=== PATIENT | female | born 1960 | race Caucasian/White ===

== ENCOUNTER → 2018-12-03 | Outpatient (CLI) | payer BC, SELFPAY ==
[2018-10-28 11:02] VITALS: BMI 23.2
[2018-12-08 12:59] LABS: HPV APTIMA, High Risk Negative (Negative)
== END | disposition home or self-care (01) ==
LOC: LABSPEC 14:14
PROVIDERS: Family Provider Family Medicine; PCP Family Medicine; Visit Provider Obstetrics & Gynecology
DX: Z12.4 Encounter for screening for malignant neoplasm of cervix (principal)
CPT/HCPCS: 87624; 88175; G0145

== ENCOUNTER → 2019-10-19 10:55 | Outpatient (CLI) | payer BC, SELFPAY ==
[2019-04-14 12:58] VITALS: BMI 23.2
--- NOTE | 2019-10-19 11:13 | BD_ITS ---
STUDY: DUAL ENERGY X-RAY ABSORPTIOMETRY / DXA REASON FOR EXAM: Female, 58 years old. Age of vivek 48. Pat is 122# and 63.25. Hx of breast CA and takes tamoxifen. Takes calcium and a multi-vit irregularly. Exercises moderatly. Hx of a possible hand fx per pat. TECHNIQUE: Bone Mineral Density (BMD) measurements of lumbar spine and bilateral hips were obtained. COMPARISON: Comparison is made with prior examination dated 03/27/2016. FINDINGS: Lumbar Spine (L1-L4): g/cm2 (1.098) / T-score (-0.7) / Z-score (0.6) Findings are suggestive of normal bone density with a low fracture risk. Left Femur Total: g/cm2 (0.797) / T-score (-1.7) / Z-score (-0.7) Left Femoral Neck: g/cm2 (0.731) / T-score (-2.2) / Z-score (-0.9) Right Femur Total: g/cm2 (0.754) / T-score (-2.0) / Z-score (-1.1) Right Femoral Neck: g/cm2 (0.692) / T-score (-2.5) / Z-score (-1.2) The T-Scores on the most recent prior examination were: Lumbar Spine (L1-L4): There has been improvement of bone density since the previous examination. Left Femur Total: which represents an improvement of 2.2%. Right Femur Total: which represents an improvement of 8.3%. BD/Dexa Bone Density Study IMPRESSION: The patient is considered osteoporotic as outlined below according to World Anthony Organization (WHO) criteria with a high fracture risk. There has been improvement of bone density since the previous examination. Reference Information: The T-score is the number of standard deviations above or below the standard which is normal for young adults at their peak bone mineral density. The World Health Organization (WHO) interprets the T-scores as follows: Above -1 Normal bone density Between -1 and -2.5 Osteopenia Equal to / or below -2.5 Osteoporosis As a practical clinical guideline, osteopenia may be graded as follows: Mild -1 through -1.5 Moderate -1.6 through -2.0 Severe -2.1 through -2.4 The Z-score is the number of standard deviations above or below age-matched controls. A Z-score of less than -1.5 would be considered abnormal. References: 1. NIH Osteoporosis and Related Bone Diseases http://www.osteo.org 2. International Society for Clinical Densitometry http://www.iscd.org 3. National Osteoporosis Foundation http://www.nof.org Electronically Signed: Gustavo Winters, at 15:58 EDT , Service support ,
== END ==
PROVIDERS: PCP Family Medicine; Referring Provider Internal Medicine Medical Oncology; Visit Provider Internal Medicine Medical Oncology
DX: Z13.820 Encounter for screening for osteoporosis (principal)
CPT/HCPCS: 77080

== ENCOUNTER → 2020-07-13 15:50 | Outpatient (CLI) | payer BC, SELFPAY ==
[2019-04-14 12:58] VITALS: BMI 23.2
--- NOTE | 2020-07-13 15:14 | EMB_PTH ---
PATIENT: MICHAEL CASTREJON LOC: [facility] U#:[id number] AGE/SX: 64/F ROOM: RE07/13/[address]: Dr. Clotilde Jj MD : 1960 BED: DIS: SPEC #: [id number] RECD: 07/13/20 16:06 STATUS: SHANKAR HUY #: [id number] HAYDEN: 07/13/20 15:[address]: Clotilde Up DEPT: SURGICAL PATHOLOGY RECD BY: Marce Chandler ENTERED: 07/16/20 08:49 SP TYPE: ENDOM BX/C ADAIR DR: Dr. Td Pope MD Tissues: Endometrium, NOS Procedures: Surgery Specimen Level IV HEADER OPERATION: Endometrial biopsy PRE-OP DIAGNOSIS: Postmenopausal bleeding TISSUE SUBMITTED: Endometrial biopsy MICROSCOPIC DIAGNOSIS Endometrium, biopsy: Strips of benign superficial glandular tissue. AM:warren 07/17/2020 MICROSCOPIC DESCRIPTION Slides are reviewed. GROSS DESCRIPTION Received in fixative is one container labeled with the patient's name and designated EMB. The specimen consists of multiple irregular fragments of starkey mucoid tissue mixed with hemorrhagic soft tissue that in aggregate measure 2.5 x 2.5 x 0.2 cm. The specimen is totally submitted in one cassette. / SJ:warren 07/16/20 TC:5 CPT: 00759
== END ==
PROVIDERS: PCP Family Medicine; Visit Provider Obstetrics & Gynecology
DX: N95.0 Postmenopausal bleeding (principal)
CPT/HCPCS: 88305

== ENCOUNTER 2020-07-27 05:57 | Day surgery (SDC) | payer BC, SELFPAY ==
[2019-04-14 12:58] VITALS: BMI 23.2
[2020-07-26 11:09] LABS: Hematocrit 40.9 % (37-47); Hemoglobin 13.2 g/dL (12.0-15.0); Mean Corp Hgb Conc 32.3 g/dL (32-36); Mean Corpuscular Hgb 31.7 pg (27.0-32.0); Mean Corpuscular Volume 98.1 fL (81-99); Mean Platelet Vol. 10.5 fl (6.2-12.0); Platelet Count 198 K/mm3 (150-450); RBC Distribution Width CV 13.1 % (11.6-14.6); RBC Distribution Width SD 46.9 fl (35.1-43.9); Red Blood Count 4.17 M/mm3 (4.2-5.4); White Blood Count 3.6 K/mm3 (4.4-11.0)
[2020-07-26 11:15] LABS: Prothrombin Time (Protime)PT. 12.8 SECONDS (11.7-14.9)
[2020-07-26 11:16] LABS: Partial Thromboplast Time 25.2 Seconds (24.1-36.2)
[2020-07-27] VITALS (7 sets, daily range): BP systolic 99–114; BP diastolic 51–81; PULSE 55–73; RESP 16; TEMP 36.6–37.1; O2SAT 99–100; BMI 22.1
--- NOTE | 2020-07-27 | EMB_PTH ---
PATIENT: MICHAEL CASTREJON LOC: [facility] U#:[id number] AGE/SX: 59/F ROOM: RE07/27/[address]: Dr. Clotilde Jj MD : 1960 BED: DIS: 07/27/2020 SPEC #: [id number] RECD: 07/27/20 12:43 STATUS: SHANKAR RECarolina #: [id number] HAYDEN: 07/27/20 00:[address]: Clotilde Up DEPT: SURGICAL PATHOLOGY RECD BY: Lars Arevalo ENTERED: 07/27/20 14:00 SP TYPE: ENDOM BX/C WILLIHR DR: Dr. Td Pope MD Tissues: Endometrium, NOS Procedures: Surgery Specimen Level IV HEADER OPERATION: Hysteroscopy, dilation and curettage PRE-OP DIAGNOSIS: Postmenopausal bleeding; endometrial thickening on ultrasound TISSUE SUBMITTED: Endometrial curettings MICROSCOPIC DIAGNOSIS Endometrial curettings: Polypoid fragments of tissue with focal simple cystic endometrial hyperplasia without atypia. See comment. VELVET:warren 07/31/2020 COMMENT Findings may represent fragments of benign endometrial polyp. Clinical correlation and appropriate follow up are necessary. Please make reference to previous specimen ([id number]) endometrium, biopsy with diagnosis of ?strips of benign superficial glandular tissue.? MICROSCOPIC DESCRIPTION Slides are reviewed. GROSS DESCRIPTION Received in fixative is one container labeled with the patient's name and designated endometrial curettings. The specimen consists of multiple polypoid fragments of starkey-pink soft tissue that in aggregate measure 5 x 3 x 0.3 cm. The specimen is totally submitted in two cassettes. / VELVET:warren 07/27/20 :5 [facility]: [id number]
--- NOTE | 2020-07-27 | FLU_PTH ---
PATIENT: MICHAEL CASTREJON [place] [facility] [place][id number] AGE/SX: 59/F ROOM: RE07/27/[address]: Dr. Clotilde Jj MD : 1960 BED: DIS: 07/27/2020 SPEC #: [id number] RECD: 07/27/20 11:08 STATUS: SHANKAR REQ #: [id number] HAYDEN: 07/27/20 00:[address]: Clotilde Up DEPT: CYTOLOGY RECD BY: Lars Arevalo ENTERED: 07/27/20 11:10 SP TYPE: Fluid OTHR DR: Dr. Td Pope MD Tissues: Endometrial cavity Procedures: Special Stain Group II Surgery Specimen Level IV Cytospin Fluid HEADER OPERATION: Not noted PRE-OP DIAGNOSIS: Postmenopausal bleeding; endometrial thickening on ultrasound TISSUE SUBMITTED: Endometrial washings DIAGNOSIS CYTOLOGY Endometrial washings (cytospin and cell block): Scant strips of benign superficial endometrium with mild atypia. See comment. AM:warren 07/31/2020 COMMENT Immunohistochemistry ([id number]) supports the above diagnosis. CYTOLOGY STUDY Slides are reviewed. CYTOLOGY GROSS Received is 4 ml of red cloudy fluid labeled with the patient's name and and designated per the requisition as endometrium. Submitted for cytology preparation including cell block. / warren 07/27/2020 TC:? CPT: 26781, 96486
--- NOTE | 2020-07-27 | IMM_PTH ---
PATIENT: MICHAEL CASTREJON LOC: [facility] [place] U#:[id number] AGE/SX: 59/F ROOM: RE07/27/[address]: Dr. Clotilde Jj MD : 1960 BED: DIS: 07/27/2020 SPEC #: [id number] RECD: 07/31/20 11:29 STATUS: SOUPapa REQ #: [id number] HAYDEN: 07/27/20 00:[address]: Clotilde Up DEPT: IMMUNOHISTOCHEMISTRY RECD BY: Angeal Seaman ENTERED: 07/31/20 11:30 SP TYPE: IMMUNO OTHR DR: Dr. Td Pope MD Tissues: Endometrium, NOS Procedures: CEA (add) CK20 (add) CK7 (add) P53 (add) VT (add) Vimentin (add) Pankeratin (add) ER (initial) PHYSICIAN & INSTITUTION [place] [id number] SPECIMEN INFORMATION: Tissue Source: Endometrial washings Clinical Info: Postmenopausal bleeding; endometrial thickening on ultrasound Specimen Number: [id number] CPT code: 38776, 10689 x7 METHODOLOGY: Deparaffinized sections of prefer/formalin-fixed tissue or PAP/DQ stained slides are incubated with monoclonal/polyclonal antibodies/oligonucleotide probes. Localization is made via biotin free immunoperoxidase method. Appropriate controls are performed and reacted as expected. Results on target cell population are indicated in the following table: RESULTS: ANTIBODY / CLONE RESULT ER (6F11) positive VT (1E2) positive AE1-3 (AE1/AE3/PCK26) positive CK7 (OV-TL12/30) positive CK20 (KS20.8) negative Vimentin (V9) positive CEA (11-7/TF-3HB-1) negative P53 (DO-7) negative These tests were developed and their performance characteristics determined by [facility]. They may not have been cleared or approved by the U.S. Food and Drug Administration. The FDA has determined that such clearance or approval is not necessary. The above immunohistochemical/dualISH markers are ordered and reviewed by the Pathologist. INTERPRETATION: Endometrial washings: Scant strips of benign superficial endometrium. AM:warren 08/01/2020
[2020-07-27] MEDS: Lactated Ringers 1,000 ML 100 ML IV (06:42)
--- NOTE | 2020-07-27 07:16 | HP.PCM.OB_ITS ---
History and Physical Date of Admission: 07/27/20 Surgical History and Physical Date: 07/27/2020 Name: MICHAEL DIAZ Age: 59 Date of : 1960 Michael Diaz, a 59 year old female 2 0 0 0 2, presents for D and C and hysteroscopy on June at 7 :30. -- Michael presents for hysteroscopy, dilation and curettage for postmenopausal bleeding. She had an office EMB on 07/13/20 with benign pathology, however, her endometrial stripe was 38mm and suspicious for underlying pathology. MEDICATIONS HISTORY: Patient is also takin. tamoxifen 20 mg tablet, 1 PO QD ALLERGIES: No Known Drug Allergies Infections - Chicken pox, Mumps and Measles Illnesses - breast cancer Accidents - None Hospitalizations - Childbirth and see surgery Review of Systems: GENERAL - Denies fever, or chills SKIN - Denies skin changes EYES - wears eye glasses EARS - Denies difficulty hearing NOSE - Denies nasal congestion or bleeding MOUTH - Denies sore throat or difficulty swallowing NECK - Denies pain or swelling RESPIRATORY - Denies shortness of breath or wheezing CARDIOVASCULAR - Denies palpitations or chest pain GASTROINTESTINAL - Denies nausea, vomiting, diarrhea, constipation GENITOURINARY - PMB MUSCULOSKELETAL - Denies joint or muscle pain NEUROLOGICAL - Denies localized numbness or weakness PSYCHIATRIC - Denies depression or anxiety ENDOCRINE - Denies heat or cold intolerance, weight loss or gain HEMATO-IMMUNOLOGIC - Denies excesive bleeding with cuts SOCIAL HISTORY: Alcohol Use - RARELY Smoking - denies smoking Diet - no special diet Lifestyle - Exercise - regular Seat Belt Use - always Employer - [employer] Job Description - CS Illicit Drug Use - denies use of street drugs Sexual Activity - single sexual partner Residence - lives with Hours Worked - FT Spouse-Sig Other Name - Federico Spouse-Sig 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 left mastectomy 08/2015 ; - 2. port insertion and removal ; - PHYSICAL EXAM BP- 120/74 Sitting, Right arm, regular cuff Weight- 125.93844 lbs Height- 62.5 inch BMI:22.55 CONSTITUTIONAL - NAD, well nourished, and well developed HEENT - normocephalic, atraumatic, sclerae anicteric LUNGS - normal respiratory rate and rhythm NEUROLOGICAL - normal gait, normal balance, normal motor PSYCHIATRIC - A and O to time, place, person, mood and affect External Genitial Vagina - non-tender without lesions Urethra/Urethral Meatus - non-tender Bladder - non-tender Vagina - vaginal pandey are pink and moist without loss of rugae and no evidence of atropy Cervix - without cervical motion tenderness and has normal size and features without evident lesions Uterus - enlarged uterus 8 wks, wt 125-150 g Adnexa - clear without massess or tenderness 07/27/20 wbc 3.6>Hgb 13.2/ Hct 40.9 < Plt 198 PELVIC US 07/13/20 UTERUS: 9.3 x 5.8 x 7.7 cm. ENDOMETRIAL ECHO: 3.8 cm and has a honeycomb appearance. There is a small amount of peripheral blood flow seen. RIGHT OVARY: Not seen and adnexa appears normal. LEFT OVARY: Not seen and adnexa appears normal. Assessment & Plan Assessment/Plan (1) Postmenopausal bleeding: (2) Endometrial thickening on ultrasound: PLAN: Proceed as planned. Patient and given opportunity to ask questions and questions answered to their satisfaction.
[2020-07-27] MEDS: Lubricating Jelly 60 GM Tube 30 GM TOPICAL (08:00)
[2020-07-27] MEDS: Lidocaine 1% (30 ml sdv) 30 ML Vial (08:00)
--- NOTE | 2020-07-27 08:26 | PCM.OPRPT ---
Problems Associated Problem List Diagnoses (1) Endometrial thickening on ultrasound: (2) Postmenopausal bleeding: Report of Operation Date of Procedure: 07/27/20 Pre-Operative Diagnosis: 1. Postmenopausal bleeding 2. Thickened endometrial stripe Post-Operative Diagnosis: 1. Postmenopausal bleeding 2. Thickened endometrial stripe Surgery/Procedure Performed:: Hysteroscopy Dilation and curettage Description of Surgical Findings:: Large polypoid endometrial lesion with areas of calcification and hypervascularity. Surgeon: Clotilde Up Type of Anesthesia: Local MAC Anesthesiologist: Christopher Marshall Specimen's removed: Endometrial curettings, endometrial fluid Estimated Blood Loss (mL): 20 Fluids Replaced: 800 mL Description of Procedure: Indications: 59-year-old postmenopausal female with a history of postmenopausal bleeding presents for scheduled hysteroscopy, dilation and curettage. She was seen approximately 2 weeks ago in the office with complaint of postmenopausal bleeding and found to have a thickened endometrial stripe measuring 38 mm with fluid components. An office endometrial biopsy was performed with benign pathology. Given my suspicion for neoplasia I advised her to proceed with hysteroscopy, dilation and curettage. Procedure risks, benefits, indications and alternatives were reviewed. Patient desired to proceed. Indications: Induced under MAC. She was repositioned into dorsal lithotomy and examination under anesthesia was performed. The perineum was prepped and straight catheterization of the bladder was performed. She was draped in sterile fashion. Patient was placed into high lithotomy and timeout performed. A bivalve speculum was placed vaginally cervix grasped the anterior cervical lip using a single-tooth tenaculum. Paracervical block was placed for total of 20 cc of 1% lidocaine without epinephrine. The cervix was subsequently dilated and hysteroscopy performed demonstrating a polypoid lesion extending from the right fundal posterior uterus and occluding the right tubal ostia. The hysteroscope was removed and a polyp forceps was used to retrieve biopsy of the polypoid lesion however it was unable to be removed in its entirety due to the size of its base. Sharp curettage was performed. Hysteroscopy was again performed with the uterus intact. The procedure was completed. The hysteroscope was removed, the tenaculum removed from the cervix. Tenaculum sites were hemostatic. Speculum was removed from the vagina. The patient was awakened and transported to the recovery room without complication. Sponge counts were correct x2. Complications None Admit VTE Documentation VTE Present on Admission: No VTE Mechan Device Prophylaxis: SCD's VTE Pharm Prophylaxis ordered?: No
--- NOTE | 2020-07-27 08:36 | PCM.DC ---
Discharge Instructions Diet Discharge Diet: No restrictions Activity Discharge Activity: Return to Normal Activity and May Shower May resume sexual activity in: - (2 to 4 weeks) Dressing / Incision Call your doctor if you observe: Fever of 101 or Higher, Using more than one pad per hour, Shortness of breath, Chest pain, Calf discomfort and Uncontrolled pain Follow Up Care Please Follow Up With: Clotilde Jj MD Test Results: Test results from this visit will be discussed in further detail at your follow-up appointment or by phone, if applicable. Discharge Plan Admission Primary Reason for Your Visit: Hysteroscopy, Dilation and Curettage Attending Provider: Clotilde Up Primary Care Provider: Td Pope Instructions Patient Instructions: Dilation and Curettage, Hysteroscopy Discharge Orders/Prescriptions Prescriptions: New ibuprofen 600 mg tablet 600 mg PO Q8H PRN (Reason: pain) Qty: 30 RF: 0 oxycodone 5 mg capsule 5 mg PO Q6H PRN (Reason: pain (scale score 7-10)) 3 Days Qty: 4 RF: 0 No Action tamoxifen 20 MG tablet 20 mg PO DAILY 90 Days Qty: 90 RF: 3 multivitamin Tablet 1 tab PO DAILY RF: 0 Referrals / Follow Up: Td Pope MD [Primary Care Provider] - Disposition Discharge Orders: Discharge Patient (Routine); Ordered 07/27/20 Ordered By: Dr. Clotilde Jj
[2020-07-27 08:40] LABS: Cytology, Body Fluid / CSF SEE PATHOLOGY REPORT
== END 2020-07-27 10:05 ==
LOC: SDC 05:58 → AC 05:58
PROVIDERS: PCP Family Medicine; Referring Provider Obstetrics & Gynecology; Visit Provider Obstetrics & Gynecology
PROC: 0UDB8ZZ Extraction of Endometrium, Via Natural or Artificial Opening Endoscopic (ICD-10-PCS; CPT 58558; principal; 2020-07-27 07:20)
DX: N85.01 Benign endometrial hyperplasia (principal); N95.0 Postmenopausal bleeding; Z85.3 Personal history of malignant neoplasm of breast; Z92.21 Personal history of antineoplastic chemotherapy; Z92.3 Personal history of irradiation
CPT/HCPCS: 00952; 58558; 36415; 85027; 85610; 85730; 86850; 86900; 86901; 87426; 88108; 88305; 88313; 88341; 88342; C9803; J7120; J2405

== ENCOUNTER → 2020-08-14 13:54 | Outpatient (CLI) | payer BC, SELFPAY ==
[2020-07-27 06:27] VITALS: BMI 22.1
== END ==
PROVIDERS: PCP Family Medicine; Visit Provider Obstetrics & Gynecology
DX: R35.0 Frequency of micturition (principal); N77.1 Vaginitis, vulvitis and vulvovaginitis in diseases classified elsewhere
CPT/HCPCS: 87086; 87088; 87186

== ENCOUNTER 2020-09-13 05:47 | Day surgery (SDC) | payer BC, SELFPAY ==
[2020-07-27 06:27] VITALS: BMI 22.1
--- NOTE | 2020-09-07 13:08 | RAD_ITS ---
STUDY: X-RAY CHEST REASON FOR EXAM: Female, 59 years old. Preop TECHNIQUE: PA and lateral views of the chest. COMPARISON: Comparison is made with prior study dated 11/22/2015. FINDINGS: The previously seen right sided ebony catheter has been removed. Surgical clips are seen in the left axillary region. The patient is status post left mastectomy. There is hyperinflation of the lungs consistent with chronic obstructive lung disease (COPD). Increased linear densities in the lateral aspect of the left upper lobe. This is suggestive of a possible scarring. There is no demonstrated pleural abnormality. Normal size heart. Normal mediastinum and ehsan. Normal visualized pulmonary arteries. Normal visualized aortic arch and descending thoracic aorta. Normal visualized thoracic spine. Normal visualized ribs, clavicles, and shoulders. There is no demonstrated abnormality of the visualized soft tissue structures of the upper abdomen. RAD/Chest PA and Lateral IMPRESSION: Hyperinflation. Status post left mastectomy and left axillary node dissection. Findings suggestive of scarring in the left upper lobe. Electronically Signed: Gustavo Winters MD at 14:53 EDT , Service support ,
--- NOTE | 2020-09-12 14:05 | EKG12_ITS ---
Test Reason : PREOP Blood Pressure : / mmHG Vent. Rate : 072 BPM Atrial Rate : 072 BPM P-R Int : 000 ms QRS Dur : 086 ms QT Int : 418 ms P-R-T Axes : 000 046 049 degrees QTc Int : 457 ms Ectopic atrial rhythm with atrial bigeminy Confirmed by PRECIOUS GALLOWAY, YOSELIN ([id number]), image editor ELISA GALVIN ([id number]) on 09/13/2020 9:06:24 AM Referred By: Clotilde Jj Confirmed By:YOSELIN LANG MD
[2020-09-12 16:18] LABS: Hematocrit 36.5 % (37-47); Hemoglobin 11.7 g/dL (12.0-15.0); Mean Corp Hgb Conc 32.1 g/dL (32-36); Mean Corpuscular Hgb 31.5 pg (27.0-32.0); Mean Corpuscular Volume 98.1 fL (81-99); Mean Platelet Vol. 10.6 fl (6.2-12.0); Platelet Count 199 K/mm3 (150-450); RBC Distribution Width SD 46.9 fl (35.1-43.9); Red Blood Count 3.72 M/mm3 (4.2-5.4); White Blood Count 3.7 K/mm3 (4.4-11.0)
[2020-09-12 16:45] LABS: International Normalized Ratio 1.2; Prothrombin Time (Protime)PT. 14.1 SECONDS (11.7-14.9)
[2020-09-12 16:46] LABS: Partial Thromboplast Time 27.5 Seconds (24.1-36.2)
[2020-09-12 16:57] LABS: AST(SGOT) 22 U/L (15-37); Alanine Aminotransfer ALT/SGPT 25 U/L (13-56); Albumin, Serum 3.1 g/dL (3.2-5.0); Alkaline Phosphatase 55 U/L (45-117); Anion Gap 4 (5-15); BUN 12 mg/dL (7-18); BUN/Creat Ratio 16.6 RATIO (10-20); Calcium,Total 8.1 mg/dL (8.5-10.1); Chloride 108 mmol/L (98-107); Creatinine, Serum 0.72 mg/dL (0.55-1.02); EST Glomerular Filtration Rate 87 mL/min (>60); Est Glom Filt Rate - Afr Amer 105 mL/min (>60); Estimated Creatinine Clearance 67.88 ml/min; Glucose 82 mg/dL (74-106); Potassium 3.9 mmol/L (3.5-5.1); Protein, Total 6.1 g/dL (6.4-8.2); Sodium Level 142 mmol/L (136-145)
[2020-09-12 17:24] LABS: Hemoglobin A1c 5.2 % (3.8-5.6)
[2020-09-13] VITALS (13 sets, daily range): BP systolic 89–120; BP diastolic 50–78; PULSE 59–77; RESP 16; TEMP 36.1–37.3; O2SAT 96–100; BMI 22.1
--- NOTE | 2020-09-13 06:00 | EKG12_ITS ---
Test Reason : PREOP Blood Pressure : / mmHG Vent. Rate : 071 BPM Atrial Rate : 071 BPM P-R Int : 156 ms QRS Dur : 086 ms QT Int : 418 ms P-R-T Axes : -04 067 071 degrees QTc Int : 454 ms Normal sinus rhythm Normal ECG When compared with ECG of 12-SEP-2020 14:13, MANUAL COMPARISON REQUIRED, DATA IS UNCONFIRMED Confirmed by RADHA GALLOWAY, JENNIFER ([id number]), videotape editor ELISA GALVIN ([id number]) on 09/17/2020 11:55:27 AM Referred By: Clotilde Jj Confirmed By:JENNIFER GARCIA MD
[2020-09-13] MEDS: Gabapentin 600 MG Tablet PO (06:51)
[2020-09-13] MEDS: Acetaminophen 500 MG Tablet 1000 MG PO ×3 (06:51→23:19)
--- NOTE | 2020-09-13 06:51 | PCM.HP.STD ---
HPI - General HPI Narrative MICHAEL CASTREJON, is a 59 F postmenopausal woman who presents for scheduled LAVH, BSO. She has a history of breast cancer, is on Tamoxifen, and had postmenopausal bleeding with endometrial thickening. Biopsy confirmed endometrial hyperplasia. COUNT INCLUDES THE [facility] Medical History (Updated 09/13/20 @ 06:[address] Clotilde Jj MD) Alcohol use Back pain Cancer colonoscopy Injury of head and neck Leg cramps Low iron med port removal Non-smoker Shortness of breath on exertion Wears glasses Home Medications tamoxifen 20 mg PO DAILY 90 Days #90 tab 10/20/17 [Rx Last Taken Unknown] multivitamin 1 tab PO DAILY 07/24/20 [History Last Taken Unknown] Allergy/AdvReac Type Severity Reaction Status Date / Time No Known Allergies Allergy Verified 09/13/20 06:30 Family History Mother Breast cancer Diabetes Surgical History History of hysteroscopy History of mastectomy Social History Smoking Status: Never smoker Vital Signs Vital Signs Vital Signs: 09/13/20 06:32 Temperature 98.1 F Temperature Source Temporal Pulse Rate 74 Respiratory Rate 16 Respiratory Pattern Normal Blood Pressure 89/59 L Blood Pressure Mean 69 Blood Pressure Source Monitor Blood Pressure Position Semi-Fowlers Blood Pressure Location Right Arm Pulse Ox 100 Oxygen Delivery Method Room Air Weight Weight: 56.8 kg Body Mass Index (BMI) 22.1 Physical Exam Const alert, oriented x3 and no apparent distress HEENT normocephalic Resp normal respiratory effort, normal air movement and clear to auscultation bilaterally Cardio regular rate and regular rhythm GI normal to inspection, nondistended, normoactive bowel sounds, soft to palpation, non-tender and non-distended Extremity no calf tenderness and no pedal edema Results Lab / Micro Data Result Diagrams: 09/12/20 14:40 09/12/20 14:40 Labs: Laboratory Results - last 24 hr 09/12/20 14:40: WBC 3.7 L, RBC 3.72 L, Hgb 11.7 L, Hct 36.5 L, MCV 98.1, MCH 31.5, MCHC 32.1, RDW Std Deviation 46.9 H, RDW Coeff of Xavier 13.0, Plt Count 199, MPV 10.6 09/12/20 14:40: Sodium 142, Potassium 3.9, Chloride 108 H, Carbon Dioxide 30.0, Anion Gap 4 L, BUN 12, Creatinine 0.72, Estim Creat Clear Calc 67.88, Est GFR (MDRD) Af Amer 105, Est GFR (MDRD) Non-Af 87, BUN/Creatinine Ratio 16.6, Glucose 82, Calcium 8.1 L, Total Bilirubin 0.20, AST 22, ALT 25, Alkaline Phosphatase 55, Total Protein 6.1 L, Albumin 3.1 L, Globulin 3.0, Albumin/Globulin Ratio 1.0 09/12/20 14:40: PT 14.1, INR 1.2, APTT 27.5 09/12/20 14:40: Hemoglobin A1c 5.2 09/12/20 14:40: Blood Type O POSITIVE, Antibody Screen NEGATIVE Micro: Microbiology 09/12/20 14:39 Interface Orders SARS-CoV-2 Antigen (Rapid) - Final Assessment & Plan Assessment/Plan (1) Endometrial thickening on ultrasound: (2) Postmenopausal bleeding: (3) Endometrial hyperplasia: PLAN: Proceed with LAVH as planned Given Tamoxifen will plan for 2 weeks postoperative anticoagulation per Dr. Thakkar
[2020-09-13] MEDS: dexAMETHasone 10 MG/ML Vial 8 MG IV (06:52)
[2020-09-13] MEDS: Heparin Injection (Vial) 5,000 UNIT/ML VIAL 5000 UNIT SC (06:52)
[2020-09-13] MEDS: Lactated Ringers 1,000 ML 40 ML IV ×4 (07:12→17:18)
[2020-09-13 07:15] LABS: Bedside Glucose 59 mg/dL (70-110)
--- NOTE | 2020-09-13 07:30 | HYST_PTH ---
PATIENT: MICHAEL CASTREJON [place] [facility] [place][id number] AGE/SX: 59/F ROOM: RE09/13/[address]: Dr. Clotilde Jj MD : 1960 BED: DIS: 09/14/2020 SPEC #: [id number] RECD: 09/13/20 11:28 STATUS: SHANKAR SON #: [id number] HAYDEN: 09/13/20 07:[address]: Clotilde Up DEPT: SURGICAL PATHOLOGY RECD BY: Lars Arevalo ENTERED: 09/13/20 11:51 SP TYPE: HYSTERECT OTHR DR: MD Dr. Chace Louis MD Tissues: Uterus, NOS Procedures: Surgery Specimen Level V HEADER OPERATION: ERAS, hysterectomy, LAVH, BSO PRE-OP DIAGNOSIS: Endometrial hyperplasia TISSUE SUBMITTED: Uterus, bilateral fallopian tubes, bilateral ovaries MICROSCOPIC DIAGNOSIS Uterus, bilateral fallopian tubes and bilateral ovaries, hysterectomy and bilateral salpingo-oophorectomy: Cervix ? chronic inflammation. Endometrium ? simple endometrial hyperplasia without atypia. Endometrial polyp ? simple endometrial hyperplasia without atypia Myometrium ? adenomyosis. - Intramural leiomyomas (largest measuring 2.5 cm in greatest dimension). Bilateral fallopian tubes - no pathologic diagnosis. Bilateral ovaries - no pathologic diagnosis. SJ:rg 09/14/2020 COMMENT Please make reference to previous specimen ([id number]) endometrial curettings with diagnosis of polypoid fragments of tissue with focal simple cystic endometrial hyperplasia without atypia. MICROSCOPIC DESCRIPTION Slides are reviewed. GROSS DESCRIPTION Received in fixative is one container labeled with the patient's name and designated uterus, bilateral fallopian tubes and bilateral ovaries. The specimen consists of a hysterectomy specimen consisting of uterus with cervix and attached bilateral fallopian tubes and ovaries. The uterus is opened anteriorly. The uterus with cervix weighs 190 gm and measures 11 x 7 x 5 cm. The serosal surface is starkey, glistening. The ectocervical mucosa is unremarkable. The external os is oval in contour. The endocervical canal measures 3.5 cm in length and the endocervical mucosa is starkey, glistening and unremarkable. The endometrial cavity is saucer-shaped and measures 5 cm in length and up to 3.5 cm in width. It shows a large polyp occupying almost the entire endometrial cavity measuring 6 x 3 x 1.5 cm. Myometrial wall endometrial polyp is not indurated. The endometrium measures 0.1 to 0.2 cm in thickness. Sections of the uterine wall reveal multiple nodular masses. The largest mass measures 2.5 cm in greatest dimension. Sections of these masses reveal starkey whorled cut surfaces without areas of hemorrhage, necrosis or cystic degeneration. Sections of the uterine wall reveal multiple cysts suspicious for adenomyosis. The uterine wall measures up to 3 cm in thickness. The right fallopian tube measures 7 cm in length and 0.5 cm in diameter. The fimbrial end is identified. No tubo-ovarian adhesions are noted. The right ovary measures 2 x 1 x 1 cm. Sections reveal unremarkable cut surfaces. Sections of fallopian tube reveals unremarkable cut surfaces. The left fallopian tube measures 6 cm in length and 0.5 cm in diameter. The fimbrial end is identified. Focal tubo-ovarian adhesions are noted. Sections reveal unremarkable cut surfaces. The left ovary measures 2 x 1 0.6 cm. Sections of fallopian tube and ovary reveal unremarkable cut surfaces. Internal [employer] Engine [employer]as[employer]er sections are submitted in 15 cassettes as follows: 1??anterior cervix, 2 - posterior cervix, 3 & 4 - anterior uterine wall, 5 & 6 - posterior uterine wall, smallest nodular mass, 7-12 - entire endometrial polyps (7 & 8 also contain the underlying uterine wall), 13??largest and intermediate sized nodular masses, 14 - right fallopian tube and ovary, 15 - left fallopian tube and ovary. / VELVET:warren 09/13/20 TC:5 CPT: 95274
--- NOTE | 2020-09-13 07:30 | FLU_PTH ---
PATIENT: MICHAEL CASTREJON [place] [facility] [place] U#:[id number] AGE/SX: 59/F ROOM: RE09/13/[address]: Dr. Clotilde Jj MD : 1960 BED: DIS: 09/14/2020 SPEC #: [id number] RECD: 09/13/20 11:04 STATUS: SHANKAR RECarolina #: [id number] HAYDEN: 09/13/20 07:[address]: Clotilde Up DEPT: CYTOLOGY RECD BY: Lars Arevalo ENTERED: 09/13/20 11:16 SP TYPE: Fluid OTHR DR: Dr. Td Pope MD Tissues: Pelvis, NOS Procedures: Special Stain Group II Surgery Specimen Level IV Cytospin Fluid HEADER OPERATION: ERAS, hysterectomy, LAV, BSO PRE-OP DIAGNOSIS: Endometrial hyperplasia TISSUE SUBMITTED: Pelvic washings DIAGNOSIS CYTOLOGY Pelvic washings (cytospin and cell block): Negative for malignant cells. See comment. VELVET:warren 09/14/2020 COMMENT Please also make reference to corresponding surgical specimen [id number]. CYTOLOGY STUDY Slides are reviewed. CYTOLOGY GROSS Received is 25 ml of light yellow clear fluid labeled with the patient's name and and designated per the requisition as pelvic washings. Submitted for cytology preparation including cell block. / warren 09/13/2020 TC:5 CPT: 69126, 05992
[2020-09-13] MEDS: Cefazolin 2 GM in 0.9% Normal Saline 100 ML IV (07:37)
[2020-09-13] MEDS: Vasopressin 20 UNITS/ML Vial (08:08)
[2020-09-13] MEDS: Lubricating Jelly 60 GM Tube 30 GM TOPICAL (10:35)
[2020-09-13] MEDS: Bupivacaine Mpf 0.5% 30 ML VIAL (10:35)
[2020-09-13 11:01] LABS: Bedside Glucose 129 mg/dL (70-110)
--- NOTE | 2020-09-13 11:08 | DCINST_ITS ---
Discharge Instructions Diet Discharge Diet: No restrictions Activity Discharge Activity: Return to Normal Activity May resume sexual activity in: 6 weeks Lifting Restrictions: 10 lb Dressing / Incision Call your doctor if your incision/area has: Continuous Slow Oozing, Sudden Increased Bleeding, Increased Pain/ Swelling, Increased Redness, Foul Smelling Discharge and Swelling at the incision site Call your doctor if you observe: Fever of 101 or Higher, Inability to urinate, Inability to have a bowel movement, Shortness of breath, Chest pain, Calf dis comfort and Uncontrolled pain Remove Dressing in: 2 days Cleanse incision/area with: Soap & Water Follow Up Care Please Follow Up With: Clotilde Up MD When: Monday, September 21, 2020 at 1:45pm Test Results: Test results from this visit will be discussed in further detail at your follow-up appointment, if applicable. Discharge Plan Admission Primary Reason for Your Visit: Removal of uterus, tubes and ovaries Attending Provider: Clotilde Up Primary Care Provider: Td Pope Consulting Providers: Chace Thakkar Instructions Patient Instructions: After Laparoscopic ..., Bilateral Salpingo-Oophorectomy, Lovenox Prefilled Syringe 40 mg/0.4 mL Discharge Orders/Prescriptions Prescriptions: New enoxaparin [Lovenox] 40 mg/0.4 mL syringe 40 mg subcut QHS Qty: 6 RF: 0 oxycodone 5 mg capsule 5 mg PO Q6H PRN (Reason: pain) 7 Days Qty: 20 RF: 0 ibuprofen 600 mg tablet 600 mg PO Q8H PRN (Reason: pain) Qty: 30 RF: 0 Continued tamoxifen 20 MG tablet 20 mg PO DAILY 90 Days Qty: 90 RF: 3 multivitamin Tablet 1 tab PO DAILY RF: 0 Other Ambulatory Orders: 12 Lead EKG (Routine) Timeframe: 20200912 Location: None Selected Ordered By: Dr. Christopher Marshall Referrals / Follow Up: Td Pope MD [Primary Care Provider] - Disposition Disposition (needs filled in before D/C Order can be placed): Home, Self Care
[2020-09-13] MEDS: Ondansetron 4 MG/2 ML Vial IV (11:13)
--- NOTE | 2020-09-13 11:45 | PCM.OPRPT ---
Problems Associated Problem List Diagnoses (1) Endometrial hyperplasia: (2) History of left breast cancer: (3) Postmenopausal bleeding: (4) Endometrial thickening on ultrasound: Report of Operation Date of Procedure: 09/13/20 Pre-Operative Diagnosis: 1. Endometrial hyperplasia without atypia 2. History of left breast cancer on tamoxifen Post-Operative Diagnosis: 1. Endometrial hyperplasia without atypia 2. History of left breast cancer on tamoxifen Surgery/Procedure Performed:: 1. Total laparoscopic hysterectomy 2. Bilateral salpingo-oophorectomy 3. Cystoscopy Description of Surgical Findings:: Normal-appearing tubes, ovaries, appendix. 10-week size uterus. Uterus was bivalved postoperatively and there appeared to be a large polypoid lesion within the endometrial cavity consistent with prior hysteroscopic findings. Surgeon: Clotilde Up pediatric ophthalmologist: Angelica Stewart Type of Anesthesia: General and Local Anesthesiologist: Ayad Bradley Specimen's removed: 1. Pelvic washings 2. Uterus, bilateral tubes and ovaries Estimated Blood Loss (mL): 150 Fluids Replaced: 1600 mL Description of Procedure: Indications: 59-year-old 2 para 2 postmenopausal woman with a history of left breast cancer on tamoxifen had complained of postmenopausal bleeding. A pelvic ultrasound demonstrated a thickened endometrium. Office endometrial biopsy was negative for pathology. She subsequently underwent hysteroscopy, dilation and curettage demonstrating a polypoid endometrial lesion. Pathology returned as endometrial hyperplasia without atypia. She was counseled and advised to proceed with hysterectomy, bilateral salpingo-oophorectomy. Procedural risks, benefits, indications and alternatives were reviewed and informed consent was obtained. Procedure: The patient was brought in the operating room and sinus performed. She is placed in the dorsal supine position and induced under general anesthesia and intubated. Her arms were tucked at her sides and she was repositioned to dorsolithotomy. The perineum and abdomen were prepped and draped in sterile fashion. The patient was placed in hot high lithotomy and Garduno catheter was placed and secured. A weighted speculum was placed vaginally and the cervix was visualized. 20 cc of dilute Pitrussin (20 units in 100 cc of normal saline) was injected circumferentially around the cervix. The uterus sounded to 10 cm. The [employer] uterine manipulator was placed and secured. The speculum was removed from the vagina and the patient was placed into low lithotomy. Attention turned to the abdomen. Half percent bupivacaine was injected at the inferior umbilicus. An inferior umbilical incision was made using the scalpel. The Veress needle was placed with successful hanging drop test and no aspirate. The abdomen was insufflated to 15 mmHg. The very varies needle was removed and a 5 mm port placed under laparoscopic guidance confirming entry into the abdominal cavity. Right and left lower quadrant T AP blocks were performed under laparoscopic guidance using bupivacaine. A left lower quadrant incision was made under transillumination and a 5 mm port was introduced to the abdominal cavity. In similar fashion a right lower quadrant incision was made and 5 mm port placed. The abdomen and pelvis were inspected and the patient was placed into Trendelenburg. The left ureter was identified from the level of the pelvic brim to the pelvis. The left infundibulopelvic ligament was isolated, electrocoagulated using the Enseal device and transected. The left round ligament was clamped, electrocoagulated and cut. The anterior broad ligament was opened sharply and the bladder flap created at the left. The left uterine vessels were skeletonized and the posterior broad ligament peritoneum was dissected. The left uterine artery and cardinal ligament was electrocoagulated and cut. The ureteric course was observed throughout this course of the hysterectomy. In similar fashion right salpingo-oophorectomy was performed, the right round ligament was electrocoagulated and transected with opening of the anterior broad ligament broad ligament and creation of the bladder flap and skeletonization of the uterine vessels, and transection of the posterior broad ligament. The right ureter was also observed during this portion of the procedure. The bladder flap was further developed. The uterosacral ligaments were transected using monopolar energy on the L-hook with creation of the colpotomy. The Advincula cuff was inflated and the colpotomy was completed circumferentially. The cuff was desufflated and attention turned to the perineum. The patient was placed into high lithotomy. The uterus was pulled through the colpotomy however from the uterine manipulator. The manipulator was removed and I grasped the uterus using Su tenaculum and single-tooth tenaculum to deliver the uterus, tubes and ovaries through the vagina. The vaginal cuff including the cul-de-sac peritoneum was reapproximated using serial 0 Vicryl figure of 8 sutures with hemostasis obtained. The Garduno catheter was removed and cystoscopy was performed demonstrating bilateral ureteral jets and no evidence of suture. Attention was again turned to the abdomen and the patient placed into low lithotomy.. The abdomen was insufflated and laparoscopy again performed demonstrating excellent hemostasis. The procedure was complete. The abdomen was desufflated and the ports were removed. The abdominal incisions were reapproximated using 4-0 Monocryl by the NETWORK ACCOUNT MANAGER under my supervision. Additional half percent bupivacaine was administered at the sites for a total of 30 cc. Steri-Strips and OpSite dressing were applied. The patient was placed into dorsal supine position, awakened, extubated and transferred to the recovery room without complication. Sponge and counts were correct x2.
[2020-09-13] MEDS: Docusate Sodium 100 MG Capsule PO (20:50)
[2020-09-13] MEDS: Enoxaparin 40 MG/0.4 ML Syringe SC (20:50)
[2020-09-14 00:58] VITALS: BP 96/57; PULSE 65; RESP 16; TEMP 36.6; O2SAT 95
[2020-09-14] MEDS: HYDROcodone Bitartrate/Apap 5/325 Tablet PO (03:21)
[2020-09-14 04:07] VITALS: BP 95/49; PULSE 73; RESP 16; TEMP 36.9; O2SAT 100
[2020-09-14 07:14] LABS: Hematocrit 29.3 % (37-47); Hemoglobin 9.7 g/dL (12.0-15.0); Mean Corp Hgb Conc 33.1 g/dL (32-36); Mean Corpuscular Hgb 31.9 pg (27.0-32.0); Mean Corpuscular Volume 96.4 fL (81-99); Mean Platelet Vol. 10.4 fl (6.2-12.0); Platelet Count 156 K/mm3 (150-450); RBC Distribution Width CV 13.1 % (11.6-14.6); RBC Distribution Width SD 46.1 fl (35.1-43.9); Red Blood Count 3.04 M/mm3 (4.2-5.4); White Blood Count 7.4 K/mm3 (4.4-11.0)
--- NOTE | 2020-09-14 09:01 | PCM.PN.BLA ---
Progress Note Dizziness resolved. Patient has been out of bed and ambulating without difficulty. Passing flatus and tolerates p.o. She was unable to void and had urinary catheter placed earlier this morning. Physical Exam Const alert, oriented x3 and no apparent distress Resp normal respiratory effort, normal air movement and clear to auscultation bilaterally Cardio regular rate, regular rhythm, S1 normal heart sound and S2 normal heart sound GI normal to inspection, nondistended, normoactive bowel sounds, soft to palpation, non-tender and non-distended GI Narrative: Incisional dressings clean dry and intact Extremity normal to inspection, no calf tenderness and no pedal edema Assessment & Plan Assessment/Plan (1) Endometrial hyperplasia: (2) H/O hysterectomy with oophorectomy: PLAN: Scopolamine related toxicity including dizziness and urinary retention improved. We will maintain Garduno catheter for discharge. Garduno and Lovenox teaching. Routine postop care. DC home later today.
[2020-09-14 09:10] VITALS: BP 72/32; PULSE 81; RESP 18; TEMP 36.8; O2SAT 93; O2SAT 96
[2020-09-14 09:20] VITALS: BP 72/40; PULSE 79
--- NOTE | 2020-09-14 09:20 | NURSING ---
PT BP 72/40. DR RAMACHANDRAN MADE AWARE - NEW ORDER RECEIVED.
[2020-09-14] MEDS: Docusate Sodium 100 MG Capsule PO (09:27)
[2020-09-14 10:49] VITALS: BP 81/43; PULSE 74
== END 2020-09-14 11:45 | disposition home or self-care (01) ==
LOC: SDC 05:47 → AC 05:48 → MS3 09-14 07:35
PROVIDERS: Anesthesiology; PCP Family Medicine; Referring Provider Obstetrics & Gynecology; Visit Provider Obstetrics & Gynecology
PROC: 0UT9FZZ Resection of Uterus, Via Natural or Artificial Opening With Percutaneous Endoscopic Assistance (ICD-10-PCS; CPT 58571; principal; 2020-09-13 07:05)
DX: D25.1 Intramural leiomyoma of uterus (principal); N85.01 Benign endometrial hyperplasia; N95.0 Postmenopausal bleeding; Z85.3 Personal history of malignant neoplasm of breast; Z79.810 Long term (current) use of selective estrogen receptor modulators (SERMs); E61.1 Iron deficiency; R25.2 Cramp and spasm; Z92.21 Personal history of antineoplastic chemotherapy; Z92.3 Personal history of irradiation; R42 Dizziness and giddiness; R33.9 Retention of urine, unspecified
CPT/HCPCS: 58571; 36415; 71046; 80053; 82962; 83036; 83735; 85027; 85610; 85730; 86850; 86900; 86901; 87426; 88108; 88305; 88307; 88313; 93005; 99251; C9803; J7040; J7120; C1760; G0463; J2405; J3475

== ENCOUNTER → 2020-09-24 15:46 | Outpatient (CLI) | payer BC, SELFPAY ==
[2020-09-13 16:58] VITALS: BMI 22.1
== END ==
PROVIDERS: PCP Family Medicine; Visit Provider Obstetrics & Gynecology
DX: N39.0 Urinary tract infection, site not specified (principal)
CPT/HCPCS: 87086; 87088; 87186

== ENCOUNTER → 2021-10-24 | Outpatient (CLI) | payer BC, SELFPAY ==
--- NOTE | 2021-10-24 09:48 | BI_ITS ---
MAMMOGRAPHY - UNILATERAL SCREENING: RIGHT BREAST REASON FOR EXAM: Female, 60 years old. Routine annual screening examination (unilateral). PERTINENT HISTORY: Personal history of breast cancer. Prior left mastectomy. Mother with breast cancer. TECHNIQUE: Digital unilateral breast kemal (3D mammographic acquisition) in the CC and MLO projections. 2-D mediolateral oblique (MLO) and craniocaudad (CC) views of both breasts were obtained. CAD: Full Field Digital Mammography with Computer Added Detection was performed. COMPARISON: Comparison is made with prior examination 10/19/2020. FINDINGS: Breast Composition: There are scattered areas of fibroglandular density. There are no dominant masses or suspicious calcifications. No other significant abnormalities are identified. There has been no significant change since the prior study. BI/SCREEN MAMM (CAD) W/KEMAL UNI R IMPRESSION: Stable unilateral screening mammogram. Yearly follow-up mammogram recommended. (A) ASSESSMENT CATEGORY: BIRADS Category 1: Negative. A letter regarding these results will be sent to the patient by the facility within 30 days. Approximately 10% of breast cancers are not detected by mammography. A normal mammogram should not delay biopsy of a clinically suspicious abnormality. [id number] Electronically Signed: Gustavo Winters MD at 11:13 EDT ,
== END | disposition home or self-care (01) ==
PROVIDERS: PCP Student in an Organized Health Care Education/Training Program; Visit Provider Internal Medicine Medical Oncology
DX: Z12.31 Encounter for screening mammogram for malignant neoplasm of breast (principal)
CPT/HCPCS: 77063; 77067

== ENCOUNTER → 2021-11-06 | Outpatient (CLI) | payer BC, SELFPAY ==
--- NOTE | 2021-11-06 10:18 | BD_ITS ---
STUDY: DUAL ENERGY X-RAY ABSORPTIOMETRY / DXA REASON FOR EXAM: Female, 60 years old. Osteoporosis. TECHNIQUE: Bone Mineral Density (BMD) measurements of lumbar spine and bilateral hips were obtained. COMPARISON: Comparison is made with prior study 10/19/2019. FINDINGS: Lumbar Spine (L1-L4): g/cm2 (0.951) / T-score (-0.9) / Z-score (0.7) Findings are suggestive of normal bone density with a low fracture risk. Left Femur Total: g/cm2 (0.693) / T-score (-2.0) / Z-score (-0.9) Left Femoral Neck: g/cm2 (0.577) / T-score (-2.5) / Z-score (-1.0) Right Femur Total: g/cm2 (0.665) / T-score (-2.3) / Z-score (-1.2) Right Femoral Neck: g/cm2 (0.528) / T-score (-2.9) / Z-score (-1.5) The T-Scores on the most recent prior examination were: Lumbar Spine (L1-L4): There has been worsening of bone density since the previous examination. Left Femur Total: which represents a worsening of 5.9%. Right Femur Total: which represents a worsening of 4.4%. BD/Dexa Bone Density Study IMPRESSION: The patient is considered osteoporotic as outlined below according to World Anthony Organization (WHO) criteria with a high fracture risk. There has been worsening of bone density since the previous examination. Reference Information: The T-score is the number of standard deviations above or below the standard which is normal for young adults at their peak bone mineral density. The World Health Organization (WHO) interprets the T-scores as follows: Above -1 Normal bone density Between -1 and -2.5 Osteopenia Equal to / or below -2.5 Osteoporosis As a practical clinical guideline, osteopenia may be graded as follows: Mild -1 through -1.5 Moderate -1.6 through -2.0 Severe -2.1 through -2.4 The Z-score is the number of standard deviations above or below age-matched controls. A Z-score of less than -1.5 would be considered abnormal. References: 1. NIH Osteoporosis and Related Bone Diseases www osteo.org 2. International Society for Clinical Densitometry www iscd.org 3. National Osteoporosis Foundation www nof.org Electronically Signed: Gustavo Winters MD at 10:58 EDT ,
== END | disposition home or self-care (01) ==
LOC: OPBD 10:08
PROVIDERS: PCP Student in an Organized Health Care Education/Training Program; Referring Provider Student in an Organized Health Care Education/Training Program; Visit Provider Student in an Organized Health Care Education/Training Program
DX: M81.0 Age-related osteoporosis without current pathological fracture (principal)
CPT/HCPCS: 77080

== ENCOUNTER → 2022-10-29 | Outpatient (CLI) | payer BC, SELFPAY ==
--- NOTE | 2022-10-29 09:30 | BI_ITS ---
MAMMOGRAPHY - UNILATERAL SCREENING: RIGHT BREAST REASON FOR EXAM: Female, 61 years old. Routine annual screening examination (unilateral). PERTINENT HISTORY: Personal history of breast cancer. Prior left mastectomy with radiation and chemotherapy. Mother with breast cancer. TECHNIQUE: Digital unilateral breast kemal (3D mammographic acquisition) in the CC and MLO projections. 2-D mediolateral oblique (MLO) and craniocaudad (CC) views of both breasts were obtained. CAD: Full Field Digital Mammography with Computer Added Detection was performed. COMPARISON: Comparison is made with prior study October 24, 2021. FINDINGS: Breast Composition: There are scattered areas of fibroglandular density. There are no dominant masses or suspicious calcifications. No other significant abnormalities are identified. There has been no significant change since the prior study. BI/SCREEN MAMM (CAD) W/KEMAL UNI R IMPRESSION: Stable unilateral screening mammogram. Yearly follow-up mammogram recommended. (A) ASSESSMENT CATEGORY: BIRADS Category 1: Negative. A letter regarding these results will be sent to the patient by the facility within 30 days. Approximately 10% of breast cancers are not detected by mammography. A normal mammogram should not delay biopsy of a clinically suspicious abnormality. [id number] Electronically Signed: Gustavo Winters MD at 12:26 EDT ,
== END | disposition home or self-care (01) ==
LOC: OPBI 09:29
PROVIDERS: PCP Nurse Practitioner Primary Care; Referring Provider Internal Medicine Medical Oncology; Visit Provider Internal Medicine Medical Oncology
DX: Z12.31 Encounter for screening mammogram for malignant neoplasm of breast (principal)
CPT/HCPCS: 77063; 77067

== ENCOUNTER → 2023-11-17 | Outpatient (CLI) | payer OTHER, SELFPAY ==
--- NOTE | 2023-11-17 09:23 | BI_ITS ---
MAMMOGRAPHY - UNILATERAL SCREENING: RIGHT BREAST REASON FOR EXAM: Female, 62 years old. Routine annual screening examination (unilateral). PERTINENT HISTORY: Personal history of breast cancer. Prior left mastectomy. Mother with breast cancer. TECHNIQUE: Digital unilateral breast kemal (3D mammographic acquisition) in the CC and MLO projections. 2-D mediolateral oblique (MLO) and craniocaudad (CC) views of both breasts were obtained. CAD: Full Field Digital Mammography with Computer Added Detection was performed. COMPARISON: Comparison is made with prior study October 29, 2022 and October 24, 2021. FINDINGS: Breast Composition: There are scattered areas of fibroglandular density. There are no dominant masses or suspicious calcifications. No other significant abnormalities are identified. There has been no significant change since the prior study. BI/SCREEN MAMM (CAD) W/KEMAL UNI R IMPRESSION: Stable unilateral screening mammogram. Yearly follow-up mammogram recommended. (A) ASSESSMENT CATEGORY: BIRADS Category 1: Negative. A letter regarding these results will be sent to the patient by the facility within 30 days. Approximately 10% of breast cancers are not detected by mammography. A normal mammogram should not delay biopsy of a clinically suspicious abnormality. [id number] Electronically Signed: Gustavo Winters MD at 10:56 EDT ,
--- NOTE | 2023-11-17 09:26 | BD_ITS ---
STUDY: DUAL ENERGY X-RAY ABSORPTIOMETRY / DXA REASON FOR EXAM: Female, 62 years old. OSTEOPENIA TECHNIQUE: Bone Mineral Density (BMD) measurements of lumbar spine and bilateral hips were obtained. COMPARISON: Comparison is made with prior study dated November 06, 2021. FINDINGS: Lumbar Spine (L1-L4): g/cm2 (0.912) / T-score (-1.2) / Z-score (0.5) Findings are suggestive of osteopenia with a low fracture risk. Left Femur Total: g/cm2 (0.678) / T-score (-2.2) / Z-score (-1.0) Left Femoral Neck: g/cm2 (0.551) / T-score (-2.7) / Z-score (-1.2) Right Femur Total: g/cm2 (0.650) / T-score (-2.4) / Z-score (-1.2) Right Femoral Neck: g/cm2 (0.514) / T-score (-3.0) / Z-score (-1.5) The T-Scores on the most recent prior examination were: Lumbar Spine (L1-L4): There has been worsening of bone density since the previous examination. Left Femur Total: which represents a worsening of 2.3%. Right Femur Total: which represents a worsening of 2.2%. BD/Dexa Bone Density Study IMPRESSION: The patient is considered osteoporotic as outlined below according to World Anthony Organization (WHO) criteria with a high fracture risk. There has been worsening of bone density since the previous examination. Reference Information: The T-score is the number of standard deviations above or below the standard which is normal for young adults at their peak bone mineral density. The World Health Organization (WHO) interprets the T-scores as follows: Above -1 Normal bone density Between -1 and -2.5 Osteopenia Equal to / or below -2.5 Osteoporosis As a practical clinical guideline, osteopenia may be graded as follows: Mild -1 through -1.5 Moderate -1.6 through -2.0 Severe -2.1 through -2.4 The Z-score is the number of standard deviations above or below age-matched controls. A Z-score of less than -1.5 would be considered abnormal. References: 1. NIH Osteoporosis and Related Bone Diseases www osteo.org 2. International Society for Clinical Densitometry www iscd.org 3. National Osteoporosis Foundation www nof.org Electronically Signed: Gustavo Winters MD at 10:14 EDT ,
== END | disposition home or self-care (01) ==
PROVIDERS: PCP Nurse Practitioner Primary Care; Referring Provider Internal Medicine Medical Oncology; Visit Provider Internal Medicine Medical Oncology
DX: Z12.31 Encounter for screening mammogram for malignant neoplasm of breast (principal); Z85.3 Personal history of malignant neoplasm of breast; M81.8 Other osteoporosis without current pathological fracture; Z13.820 Encounter for screening for osteoporosis
CPT/HCPCS: 77063; 77067; 77080

== ENCOUNTER → 2024-11-17 | Outpatient (CLI) | payer OTHER, MEDICARE, SELFPAY ==
--- NOTE | 2024-11-17 11:00 | BI_ITS ---
EXAM: SCREEN MAMM (CAD) W/KEMAL UNI R DATE: 11/17/2024 CLINICAL HISTORY: F, Age 63 y/o , SCREENING FOR BREAST CANCER; H/O BREAST CA Personal history of breast cancer. Mother with breast cancer. TECHNIQUE: Procedure Code: [id number] Modality: MG Procedure: SCREEN MAMM (CAD) W/KEMAL UNI R COMPARISON: Prior exam(s) dated prior study dated November 17, 2023.. FINDINGS: TISSUE DENSITY: There are scattered areas of fibroglandular density. Bilateral Breast Mammographic Findings: No significant masses, calcifications or other abnormalities are identified. No suspicious masses, areas of developing architectural distortion, or suspicious calcifications. There has been no significant interval change. BI/SCREEN MAMM (CAD) W/KEMAL UNI R IMPRESSION: Stable unilateral screening mammogram. OVERALL FINAL ASSESSMENT BI-RADS 1: NEGATIVE. RECOMMENDATION: Routine annual follow-up in 1 Year A letter with findings and recommendations will be mailed to the patient. Reading Location: [place] [address]
--- OUTSIDE RECORDS SUMMARY | 2024-11-17 13:15 | XMS RPT_ITS | CCD ---
Author Organization [facility] Care Team Providers Care Photoresist Printer Name Role Phone COTY HUGHES Unavailable Unavailable COTY HUGHES Unavailable Unavailable RICHA POPE Unavailable Unavailable Darvin PATTERN DESIGNER, PATTERN DESIGNEREleazar Johnson Attending Provider [phone] Dr. Charli Ba Primary Care Provider [phone] Dr. Charli Ba Referring Provider [phone] Renetta PATTERN DESIGNER, Nini Referring Unavailable Renetta PATTERN DESIGNER, Nini Primary Care Unavailable Darvin PATTERN DESIGNER, Elizabeth Attending Unavailable Renetta PATTERN DESIGNER, Nini Referring Unavailable Renetta PATTERN DESIGNER, Nini Primary Care Unavailable Chace Thakkar Attending Unavailable Coty Hughes Referring Unavailable Richa Pope Primary Care Unavailable Chace Thakkar Attending Unavailable Renetta PATTERN DESIGNER, Nini Primary Care Unavailable Darvin PATTERN DESIGNER, Elizabeth Referring Unavailable Darvin PATTERN DESIGNER, Elizabeth Attending Unavailable Medications Current Medications Medication Drug Class(es) Dates Sig (Normalized) Sig (Original) Multivitamin preparation (3 sources) Start: 07-24-2020 take 1 tablet by mouth once daily Multivitamin Active 1 TABLET PO DAILY July 24, 2020 12:00am Completed/Discontinued Medications Medication Drug Class(es) Dates Sig (Normalized) Sig (Original) acetaminophen 325 mg / HYDROcodone bitartrate 5 mg oral tablet (6 sources) Opioid Agonist Start: 05-28-2016 End: 06-12-2016 Hydrocodone-Acetami nophen (Salkum 5-325 Tablet) 1 EACH tablet Discontinued 1 EACH PO THREE TIMES A DAY May 28, 2016 12:00am June 12, 2016 2:49pm Start: 10-22-2015 End: 06-10-2016 Hydrocodone-Acetaminophen Di scontinued 1 EACH PO 4 TIMES DAILY NEEDED October 22, 2015 12:00am June 10, 2016 5:03pm amoxicillin 500 mg / clavulanate 125 mg oral tablet (3 sources) Penicillin-class Antibacterial Start: 11-22-2015 End: 06-12-2016 take 1 tablet by mouth three times daily Amoxicillin/Potassium Clav (Amox-Clav 500-125 Mg Tablet) 1 EACH tablet Discontinued 1 TABLET PO THREE TIMES A DAY November 22, 2015 12:00am June 12, 2016 2:52pm cephalexin 500 mg oral capsule (3 sources) Cephalosporin Antibacterial Start: 01-14-2016 End: 06-12-2016 Cephalexin (Keflex) 500 MG capsule Discontinued 500 MG PO NEEDED January 14, 2016 1:00am June 12, 2016 2:52pm cyclobenzaprine hydrochloride 5 mg oral tablet (3 sources) Muscle Relaxant Start: 12-03-2015 End: 06-12-2016 take 5 mg by mouth three times daily Cyclobenzaprine Discontinued 5 MG PO THREE TIMES A DAY December 03, 2015 12:00am June 12, 2016 2:52pm 0.4 ml enoxaparin sodium 100 mg/ml prefilled syringe (3 sources) Low Molecular Weight Heparin Start: 09-13-2020 End: 10-18-2020 Enoxaparin (Lovenox) 40 mg/0.4 mL syringe Discontinued 40 MG SC AT BEDTIME September 13, 2020 12:00am October 18, 2020 1:53pm Fish Oil-Dha-Epa (3 sources) Start: 10-29-2015 End: 06-12-2016 Fish Oil-Dha-Epa Discontinued 1 EACH PO DAILY October 29, 2015 12:00am June 12, 2016 2:51pm glycerin 1300 mg rectal suppository (3 sources) Non-Standardized Chemical Allergen Start: 01-14-2016 End: 06-12-2016 Glycerin (Child) Discontinued 1 EACH RC NEEDED January 14, 2016 1:00am June 12, 2016 2:51pm ibuprofen 600 mg oral tablet (6 sources) Nonsteroidal Anti-inflammatory Drug Start: 09-13-2020 End: 10-18-2020 take 600 mg by mouth every eight hours Ibuprofen Discontinued 600 MG PO Q8H September 13, 2020 12:00am October 18, 2020 1:53pm Start: 10-22-2015 End: 06-12-2016 take 200 mg by mouth every six hours as needed Ibuprofen Discontinued 200 MG PO EVERY 6 HOURS NEEDED October 22, 2015 12:00am June 12, 2016 2:50pm levoFLOXacin 500 mg oral tablet (6 sources) Quinolone Antimicrobial Start: 12-03-2015 End: 06-12-2016 take 500 mg by mouth once daily Levofloxacin Discontinued 500 MG PO DAILY December 03, 2015 12:00am June 12, 2016 2:51pm Start: 10-22-2015 End: 10-31-2015 take 500 mg by mouth once daily Levofloxacin Discontinued 500 MG PO DAILY October 22, 2015 12:00am October 31, 2015 10:57am lidocaine 25 mg/ml / prilocaine 25 mg/ml topical cream (3 sources) Antiarrhythmic, Amide Local Anesthetic Start: 10-22-2015 End: 06-12-2016 Lidocaine-Prilocaine Discontinued 30 GM TP DIRECTED October 22, 2015 12:00am June 12, 2016 2:50pm Multivitamin (Daily Multiple) 1 EACH tablet (3 sources) Start: 10-22-2015 End: 06-12-2016 take 1 tablet by mouth once daily Multivitamin (Daily Multiple) 1 EACH tablet Discontinued 1 EACH PO DAILY October 22, 2015 12:00am June 12, 2016 2:51pm ondansetron 4 mg disintegrating oral tablet (3 sources) Serotonin-3 Receptor Antagonist Start: 10-22-2015 End: 06-12-2016 take 4 mg by mouth every eight hours as needed Ondansetron Discontinued 4 MG PO EVERY 8 HOURS NEEDED October 22, 2015 12:00am June 12, 2016 2:50pm oxyCODONE hydrochloride 5 mg oral capsule (3 sources) Opioid Agonist Start: 09-13-2020 End: 10-18-2020 take 5 mg by mouth every six hours Oxycodone Discontinued 5 MG PO EVERY 6 HOURS 18 09September 13, 2020 October 18, 2020 1:53pm prochlorperazine 10 mg oral tablet (3 sources) Phenothiazine Start: 10-22-2015 End: 06-12-2016 take 1 tablet by mouth every six hours as needed Prochlorperazine Maleate (Compazine) 10 MG tablet Discontinued 10 MG PO EVERY 6 HOURS NEEDED October 22, 2015 12:00am June 12, 2016 2:49pm tamoxifen 20 mg oral tablet (20 sources) Estrogen Agonist/Antagonist Start: 05-28-2016 End: 08-05-2022 take 20 mg by mouth once daily Tamoxifen Discontinued 20 MG PO DAILY 90 90 December 20, 2020 11:47am October 30, 2021 11:10am Problems Active Problems Problem Classification Problem Date Documented Date Episodic/Chronic Cancer of breast (9 sources) Malignant neoplasm of upper-outer quadrant of female breast; Translations: [Malignant neoplasm of upper-outer quadrant of left female breast] 04-15-2018 Chronic Coagulation and hemorrhagic disorders (3 sources) Platelet count below reference range; Translations: [Thrombocytopenia, unspecified] 04-15-2018 Chronic Diseases of white blood cells (6 sources) Leukopenia; Translations: [Decreased white blood cell count, unspecified] 04-15-2018 Chronic Menopausal disorders (3 sources) Postmenopausal bleeding; Translations: [Postmenopausal bleeding] 07-27-2020 Chronic Osteoporosis (8 sources) Osteoporosis; Translations: [Age-related osteoporosis without current pathological fracture] Onset: 11-19-2023 Chronic Other female genital disorders (3 sources) Endometrial hyperplasia; Translations: [Endometrial hyperplasia, unspecified] 09-13-2020 Chronic Other screening for suspected conditions (not mental disorders or infectious disease) (3 sources) Endometrium thickened; Translations: [Abnormal findings on diagnostic imaging of other specified body structures] 07-27-2020 Chronic Other screening for suspected conditions (not mental disorders or infectious disease) (2 sources) Encounter for screening mammogram for malignant neoplasm of breast; Translations: [Encounter for other screening for malignant neoplasm of breast] Onset: 11-15-2024 Episodic Other upper respiratory infections (3 sources) Pharyngitis; Translations: [Acute pharyngitis, unspecified] 04-15-2018 Episodic Residual codes; unclassified (3 sources) Generally unwell; Translations: [Other general symptoms and signs] 04-15-2018 Episodic Residual codes; unclassified (3 sources) History of antineoplastic chemotherapy; Translations: [Personal history of antineoplastic chemotherapy] 04-15-2018 Episodic Residual codes; unclassified (1 source) Asymptomatic menopausal state; Translations: [Asymptomatic menopausal state] Onset: 11-15-2024 Episodic Syncope (3 sources) Near syncope; Translations: [Syncope and collapse] 04-15-2018 Episodic Unclassified (1 source) Unknown / UNK(Unknown) Onset: 09-04-2016 Past or Other Problems Problem Classification Problem Date Documented Da te Episodic/Chronic Cancer of breast (8 sources) History of malignant neoplasm of breast; Translations: [Personal history of malignant neoplasm of breast] Onset: 05-04-2024 Episodic Deficiency and other anemia (2 sources) Anemia, unspecified; Translations: [Anemia, unspecified] Onset: 11-19-2023 Episodic Unclassified (1 source) MA MAMMOGRAM DIAGNOSTIC RIGHT W/KEMAL, PERSONAL HX Onset: 09-04-2016 Unclassified (3 sources) med port removal 09-26-2021 Results Test Name Value Interpretation Reference Range Facility CBC W/Diff, Automatedon Absolute Lymph 1.48 X10 3/uL Normal 0.83-4.51 [facility] Comment on above: Performed By: #### L 503.6550, L503.6030, L504.2610, L100.0100, L500.4050 #### [facility] [address] [place], [address] Absolute Neut 2.6 X10 3/uL Normal 2.0-7.7 [facility] Comment on above: Performed By: #### L 503.6550, L503.6030, L504.2610, L100.0100, L500.4050 #### [facility] [address] [place], [address] Basophils/100 WBC (Bld) 0.6 % Normal 0-1 [facility] Comment on above: Performed By: #### L 503.6550, L503.6030, L504.2610, L100.0100, L500.4050 #### [facility] [address] [place], [address] Eosinophils/100 WBC (Bld) 5.0 % Normal 0-5 [facility] Comment on above: Performed By: #### L 503.6550, L503.6030, L504.2610, L100.0100, L500.4050 #### [facility] [address] [place], [address] Erythrocyte distribution width (RBC) [Ratio] 13.2 % Normal 11.6-14.6 [facility] Comment on above: Performed By: #### L 503.6550, L503.6030, L504.2610, L100.0100, L500.4050 #### [facility] [address] [place], [address] Hematocrit (Bld) [Volume fraction] 37.5 % Normal 37-47 [facility] Comment on above: Performed By: #### L 503.6550, L503.6030, L504.2610, L100.0100, L500.4050 #### [facility] [address] [place], [address] Hemoglobin (Bld) [Mass/Vol] 12.5 g/dL Normal 12.0-15.0 [facility] Comment on above: Performed By: #### L 503.6550, L503.6030, L504.2610, L100.0100, L500.4050 #### [facility] [address] [place], [address] IG% 0.200 Normal 0.0-0.9 [facility] Comment on above: Result Comment: IG% - Immature Granulocytes (promyelocytes, myelocytes and metamyelocytes) > 1% indicates that a LEFT SHIFT is Present. Performed By: #### L 503.6550, L503.6030, L504.2610, L100.0100, L500.4050 #### [facility] [address] [place], [address] Lymphocytes/100 WBC (Bld) 30.7 % Normal 19-41 [facility] Comment on above: Performed By: #### L 503.6550, L503.6030, L504.2610, L100.0100, L500.4050 #### [facility] [address] [place], [address] MCH (RBC) [Entitic mass] 31.5 pg Normal 27.0-32.0 [facility] Comment on above: Performed By: #### L 503.6550, L503.6030, L504.2610, L100.0100, L500.4050 #### [facility] [address] [place], [address] MCHC (RBC) [Mass/Vol] 33.3 g/dL Normal 32-36 [facility] Comment on above: Performed By: #### L 503.6550, L503.6030, L504.2610, L100.0100, L500.4050 #### [facility] [address] [place], [address] MCV (RBC) [Entitic vol] 94.5 fL Normal 81-99 [facility] Comment on above: Performed By: #### L 503.6550, L503.6030, L504.2610, L100.0100, L500.4050 #### [facility] [address] [place], [address] Monocytes/100 WBC (Bld) 10.6 % High 0-10 [facility] Comment on above: Performed By: #### L 503.6550, L503.6030, L504.2610, L100.0100, L500.4050 #### [facility] [address] [place], [address] Neutrophils/100 WBC (Bld) 52.9 % Normal 47-70 [facility] Comment on above: Performed By: #### L 503.6550, L503.6030, L504.2610, L100.0100, L500.4050 #### [facility] [address] [place], [address] Nucleated RBC (Bld) [#/Vol] 0 10*3/uL Normal 0-5 [facility] Comment on above: Performed By: #### L 503.6550, L503.6030, L504.2610, L100.0100, L500.4050 #### [facility] [address] [place], [address] Platelet mean volume (Bld) [Entitic vol] 9.7 fL Normal 6.2-12.0 [facility] Comment on above: Performed By: #### L 503.6550, L503.6030, L504.2610, L100.0100, L500.4050 #### [facility] [address] [place], [address] Platelets (Bld) [#/Vol] 200 10*3/uL Normal 150-450 [facility] Comment on above: Performed By: #### L 503.6550, L503.6030, L504.2610, L100.0100, L500.4050 #### [facility] [address] [place], [address] RBC (Bld) [#/Vol] 3.97 10*6/uL Low 4.2-5.4 [facility] Comment on above: Performed By: #### L 503.6550, L503.6030, L504.2610, L100.0100, L500.4050 #### [facility] [address] [place], [address] RDW SD 45.8 fl High 35.1-43.9 [facility] Comment on above: Performed By: #### L 503.6550, L503.6030, L504.2610, L100.0100, L500.4050 #### [facility] [address] [place], [address] WBC (Bld) [#/Vol] 4.8 10*3/uL Normal 4.4-11.0 [facility] Comment on above: Performed By: #### L 503.6550, L503.6030, L504.2610, L100.0100, L500.4050 #### [facility] [address] [place], [address] Comprehensive Metabolic Prof ilon 05-04-2024 Albumin [Mass/Vol] 3.9 g/dL Normal 3.4-4.8 [facility] Comment on above: Performed By: #### L 503.6550, L503.6030, L504.2610, L100.0100, L500.4050 #### [facility] [address] [place], [address] Albumin/Globulin [Mass ratio] 1.5 {ratio} Normal 0.9-2.4 [facility] Comment on above: Performed By: #### L 503.6550, L503.6030, L504.2610, L100.0100, L500.4050 #### [facility] [address] [place], [address] ALK PHOS 68 U/L Normal 35-104 [facility] Comment on above: Performed By: #### L 503.6550, L503.6030, L504.2610, L100.0100, L500.4050 #### [facility] [address] [place], [address] ALT [Catalytic activity/Vol] 15 U/L Normal <=34 [facility] Comment on above: Performed By: #### L 503.6550, L503.6030, L504.2610, L100.0100, L500.4050 #### [facility] [address] [place], [address] AST [Catalytic activity/Vol] 23 U/L Normal <=31 [facility] Comment on above: Performed By: #### L 503.6550, L503.6030, L504.2610, L100.0100, L500.4050 #### [facility] [address] [place], [address] Bilirubin [Mass/Vol] 0.22 mg/dL Normal 0.00-1.30 [facility] Comment on above: Performed By: #### L 503.6550, L503.6030, L504.2610, L100.0100, L500.4050 #### [facility] [address] [place], [address] BUN/CRE 12.6 RATIO Normal 10-20 [facility] Comment on above: Performed By: #### L 503.6550, L503.6030, L504.2610, L100.0100, L500.4050 #### [facility] [address] [place], [address] Calcium [Mass/Vol] 8.9 mg/dL Normal 7.6-11.0 [facility] Comment on above: Performed By: #### L 503.6550, L503.6030, L504.2610, L100.0100, L500.4050 #### [facility] [address] [place], [address] Chloride [Moles/Vol] 107 mmol/L Normal 98-108 [facility] Comment on above: Performed By: #### L 503.6550, L503.6030, L504.2610, L100.0100, L500.4050 #### [facility] [address] [place], [address] CO2 [Moles/Vol] 24.4 mmol/L Normal 21.0-32.0 [facility] Comment on above: Performed By: #### L 503.6550, L503.6030, L504.2610, L100.0100, L500.4050 #### [facility] [address] [place], [address] Creatinine [Mass/Vol] 0.75 mg/dL Normal 0.70-1.20 [facility] Comment on above: Performed By: #### L 503.6550, L503.6030, L504.2610, L100.0100, L500.4050 #### [facility] [address] [place], [address] ECRCL 55.45 ml/min Normal 50-250 [facility] Comment on above: Performed By: #### L 503.6550, L503.6030, L504.2610, L100.0100, L500.4050 #### [facility] [address] [place], [address] GAP 10 Normal 5-15 [facility] Comment on above: Performed By: #### L 503.6550, L503.6030, L504.2610, L100.0100, L500.4050 #### [facility] [address] [place], [address] GFR/1.73 sq M.predicted among non-blacks MDRD (S/P/Bld) [Vol rate/Area] 88 mL/min/{1.73_m2} Normal >60 [facility] Comment on above: Result Comment: mL/m in/1.73m2 CKD-EPI Creatinine Equation (2020) Performed By: #### L 503.6550, L503.6030, L504.2610, L100.0100, L500.4050 #### [facility] [address] [place], [address] Globulin (S) [Mass/Vol] 2.7 g/dL Normal 2.2-4.2 [facility] Comment on above: Performed By: #### L 503.6550, L503.6030, L504.2610, L100.0100, L500.4050 #### [facility] [address] [place], [address] Glucose [Mass/Vol] 88 mg/dL Normal 70-99 [facility] Comment on above: Performed By: #### L 503.6550, L503.6030, L504.2610, L100.0100, L500.4050 #### [facility] [address] [place], [address] Potassium [Moles/Vol] 3.9 mmol/L Normal 3.3-5.1 [facility] Comment on above: Performed By: #### L 503.6550, L503.6030, L504.2610, L100.0100, L500.4050 #### [facility] [address] [place], [address] Sodium [Moles/Vol] 141 mmol/L Normal 133-145 [facility] Comment on above: Performed By: #### L 503.6550, L503.6030, L504.2610, L100.0100, L500.4050 #### [facility] [address] [place], [address] T PROT 6.5 g/dL Normal 5.9-8.4 [facility] Comment on above: Performed By: #### L 503.6550, L503.6030, L504.2610, L100.0100, L500.4050 #### [facility] [address] [place], [address] Urea nitrogen [Mass/Vol] 9 mg/dL Normal 4-19 [facility] Comment on above: Performed By: #### L 503.6550, L503.6030, L504.2610, L100.0100, L500.4050 #### [facility] [address] [place], [address] Ferritinon 05-04-2024 Ferritin [Mass/Vol] 27 ng/mL Normal 22-378 [facility] Comment on above: Performed By: #### L 503.6550, L503.6030, L504.2610, L100.0100, L500.4050 #### [facility] [address] [place], [address] Iron+Iron Binding Capacityon 05-04-2024 Iron [Mass/Vol] 96 ug/dL Normal 50-170 [facility] Comment on above: Performed By: #### L 503.6550, L503.6030, L504.2610, L100.0100, L500.4050 #### [facility] [address] [place], [address] IRON SATURATION 29.0 Normal 15.0-55.0 [facility] Comment on above: Performed By: #### L 503.6550, L503.6030, L504.2610, L100.0100, L500.4050 #### [facility] [address] [place], [address] TIBC 329 ug/dL Normal 250-450 [facility] Comment on above: Performed By: #### L 503.6550, L503.6030, L504.2610, L100.0100, L500.4050 #### [facility] [address] [place], [address] UIBC 233 ug/dL Normal 228-428 [facility] Comment on above: Performed By: #### L 503.6550, L503.6030, L504.2610, L100.0100, L500.4050 #### [facility] [address] [place], [address] LDHon 05-04-2024 LDH 209 U/L Normal 84-246 [facility] Comment on above: Order Comment: 1 Performed By: #### L 503.6550, L503.6030, L504.2610, L100.0100, L500.4050 #### [facility] [address] [place], [address] Oncology Visit Reporton Oncology Visit Report [facility] [address] [place] [address] OFFICE VISIT Date of Service: 05/04/24 1405 MR#: [id number] Acct: [id number] Name: MICHAEL CASTREJON Rep #: [id number] : 1960 From: Elizabeth Boston NP PATTERN DESIGNER -C Age/Sex: 63/F Location: [facility] Status: Signed HPI Subjective Date of Service 05/04/24 Chief Complaint Follow up- breast cancer History of Present Illness 63 y.o.woman was diagnosed with Left breast cancer on 09/07/2015. FNA showed invasive Ductal Carcinoma, ER/AK positive, Her2 negative. She has Left MRM and axillary dissection on 09/26/2015, tumor size 34mm, LN3/4 positive, Stage IIIA(pT2 pN2a M0). She received adjuvant chemotherapy Dose Dense AC and Taxol form 10/22/2015-01/28/2016 . Received adjuvant RT form 02/12/2016-03/31/2016 . Dexa scan on 03/27/2016 showed Osteoporosis of Right hip. Declined Prolia. She began adjuvant Tamoxifen on 04/17/2016. Had BSO and YOCASTA on 09/13/2020. Remains on Tamoxifen. Interval History The patient is presenting to clinic for a planned 6 month follow up. Confirms good adherence and tolerance to tamoxifen. Hot flashes are rare and mild. Remains active, walking or uses Eliptical 30-60 min/day. Occasionally experiences a sensation consistent with tachycardia- does not occur weekly, lasts 30 sec. Vague cannot recall onset. Specifically denies headches, dizziness, CP, palpitations, cough, SOB, abd pain, bone pain, changes in her bowel habits, swelling of her extremities. [facility] Medical History Wears glasses Cancer Alcohol use Low iron Back pain Injury of head and neck Shortness of breath on exertion Non-smoker Leg cramps med port removal colonoscopy Surgical History H/O hysterectomy with oophorectomy History of hysteroscopy History of mastectomy Family History Mother Breast cancer Diabetes Social History Smoking Status: Never smoker second hand exposure: No substance use type: does not use efrain/taoist: None seatbelt use: always do you feel safe at home: Yes ROS ROS Narrative Negative except as documented in the interval HPI Intake Vital Signs 11/19/23 13:46 05/04/24 14:05 Height 5 ft 3 in 5 ft 3 in Weight: 124 lb 8 oz 131 lb 1 oz BMI 22.0 23.2 BP 102/70 112/77 Blood Pressure Location Rt brachial Rt brachial Position Sitting Sitting Respiration 18 18 Pulse 55 L 67 Pulse Source Monitor Monitor Temp 98.4 F 98 F Temperature Source Temporal Artery Temporal Artery Pulse Oximetry (%) 100 100 Oxygen Delivery Method room air room air Intake Is patient in pain?: No Allergies No Known Allergies Allergy (Verified 05/04/24 14:05) Medications ???Medication ???Instructions ???Recorded ???Confirmed ???Type multivitamin 1 tab PO DAILY 07/24/20 05/04/24 H istory tamoxifen 20 mg tablet 20 mg PO QDAY 90 days #90 tabs 05/04/24 Rx Have you fallen in the past year?: No Central Venous Access Central Venous Access: No Laboratory Tests 05/04/24 13:16 WBC 4.8 Hgb 12.5 Hct 37.5 Plt Count 200 Absolute Neuts (auto) 2.6 Sodium 141 Potassium 3.9 Chloride 107 BUN 9 Creatinine 0.75 Glucose 88 Calcium 8.9 Iron 96 TIBC 329 Iron Saturation 29.0 Unsaturated IBC 233 Ferritin 27 Total Bilirubin 0.22 AST 23 ALT 15 Alkaline Phosphatase 68 Lactate Dehydrogenase 209 Albumin 3.9 Exam Physical Exam Const alert, oriented x3 and average body habitus General Appearance: cooperative HEENT normocephalic Eyes conjunctivae normal and no scleral icterus Neck no lymphadenopathy and supple Lymph Lymphatic: no lymphadenopathy noted Chest inspection of chest normal Chest Narrative: L mastectomy scar. Resp normal respiratory effort and clear to auscultation bilaterally Cardio regular rate, regular rhythm, S1 normal heart sound, S2 normal heart sound and no murmurs GI normal to inspection, nondistended, normoactive bowel sounds no CVA tenderness Back/Spine no CVA tenderness and thoracic and lumbar spine normal to inspection Extremity normal to inspection, no joint enlargement and no clubbing, cyanosis or edema Skin no rashes or lesions noted Psych mental status grossly normal Coding Level of Care Code Off vis,est,level 4 Exam Problem Focused Diagnoses History of left breast cancer Z85.3 Other osteoporosis without current pathological fracture M81.8 Osteoporosis type: other Presence of current pathological fracture: without current pathological fracture Assessment and Plan A (more content not included)... Normal [facility] Stool Occult Blood iFOBon STOB Negative Normal [facility] Comment on above: Performed By: #### M 100.7900 #### [facility] [address] [place], [address] CBC W/Diff, Automatedon 10-31 Absolute Lymph 1.31 X10 3/uL Normal 0.83-4.51 [facility] Comment on above: Order Comment: DR ASHWINI SALDANA ORDERED CMP, LDH, CBCD PATTERN DESIGNER.JWITMER ORDERED LIPID PT HAD EATEN BREAKFAST Performed By: #### L 100.0100, L500.4050, L500.4100, L504.2610 #### [facility] [address] [place], [address] Absolute Neut 2.8 X10 3/uL Normal 2.0-7.7 [facility] Comment on above: Order Comment: DR ASHWINI SALDANA ORDERED CMP, LDH, CBCD PATTERN DESIGNER.JWITMER ORDERED LIPID PT HAD EATEN BREAKFAST Performed By: #### L 100.0100, L500.4050, L500.4100, L504.2610 #### [facility] [address] [place], [address] Basophils/100 WBC (Bld) 0.6 % Normal 0-1 [facility] Comment on above: Order Comment: DR ASHWINI SALDANA ORDERED CMP, LDH, CBCD PATTERN DESIGNER.JWITMER ORDERED LIPID PT HAD EATEN BREAKFAST Performed By: #### L 100.0100, L500.4050, L500.4100, L504.2610 #### [facility] [address] [place], [address] Eosinophils/100 WBC (Bld) 4.4 % Normal 0-5 [facility] Comment on above: Order Comment: DR ASHWINI SALDANA ORDERED CMP, LDH, CBCD PATTERN DESIGNER.JWITMER ORDERED LIPID PT HAD EATEN BREAKFAST Performed By: #### L 100.0100, L500.4050, L500.4100, L504.2610 #### [facility] [address] [place], [address] Erythrocyte distribution width (RBC) [Ratio] 13.1 % Normal 11.6-14.6 [facility] Comment on above: Order Comment: DR ASHWINI SALDANA ORDERED CMP, LDH, CBCD PATTERN DESIGNER.JWITMER ORDERED LIPID PT HAD EATEN BREAKFAST Performed By: #### L 100.0100, L500.4050, L500.4100, L504.2610 #### [facility] [address] [place], [address] Hematocrit (Bld) [Volume fraction] 36.4 % Low 37-47 [facility] Comment on above: Order Comment: DR ASHWINI SALDANA ORDERED CMP, LDH, CBCD PATTERN DESIGNER.JWITMER ORDERED LIPID PT HAD EATEN BREAKFAST Performed By: #### L 100.0100, L500.4050, L500.4100, L504.2610 #### [facility] [address] [place], [address] Hemoglobin (Bld) [Mass/Vol] 11.6 g/dL Low 12.0-15.0 [facility] Comment on above: Order Comment: DR ASHWINI SALDANA ORDERED CMP, LDH, CBCD PATTERN DESIGNER.JWITMER ORDERED LIPID PT HAD EATEN BREAKFAST Performed By: #### L 100.0100, L500.4050, L500.4100, L504.2610 #### [facility] [address] [place], [address] IG% 0.400 Normal 0.0-0.9 [facility] Comment on above: Order Comment: DR ASHWINI SALDANA ORDERED CMP, LDH, CBCD PATTERN DESIGNER.JWITMER ORDERED LIPID PT HAD EATEN BREAKFAST Result Comment: IG% - Immature Granulocytes (promyelocytes, myelocytes and metamyelocytes) > 1% indicates that a LEFT SHIFT is Present. Performed By: #### L 100.0100, L500.4050, L500.4100, L504.2610 #### [facility] [address] [place], [address] Lymphocytes/100 WBC (Bld) 27.5 % Normal 19-41 [facility] Comment on above: Order Comment: DR ASHWINI SALDANA ORDERED CMP, LDH, CBCD PATTERN DESIGNER.ITMER ORDERED LIPID PT HAD EATEN BREAKFAST Performed By: #### L 100.0100, L500.4050, L500.4100, L504.2610 #### [facility] [address] [place], [address] MCH (RBC) [Entitic mass] 30.4 pg Normal 27.0-32.0 [facility] Comment on above: Order Comment: DR ASHWINI SALDANA ORDERED CMP, LDH, CBCD PATTERN DESIGNER.JWITMER ORDERED LIPID PT HAD EATEN BREAKFAST Performed By: #### L 100.0100, L500.4050, L500.4100, L504.2610 #### [facility] [address] [place], [address] MCHC (RBC) [Mass/Vol] 31.9 g/dL Low 32-36 [facility] Comment on above: Order Comment: DR ASHWINI SALDANA ORDERED CMP, LDH, CBCD PATTERN DESIGNER.JWITMER ORDERED LIPID PT HAD EATEN BREAKFAST Performed By: #### L 100.0100, L500.4050, L500.4100, L504.2610 #### [facility] [address] [place], [address] MCV (RBC) [Entitic vol] 95.5 fL Normal 81-99 [facility] Comment on above: Order Comment: DR ASHWINI SALDANA ORDERED CMP, LDH, CBCD PATTERN DESIGNER.JWITMER ORDERED LIPID PT HAD EATEN BREAKFAST Performed By: #### L 100.0100, L500.4050, L500.4100, L504.2610 #### [facility] [address] [place], [address] Monocytes/100 WBC (Bld) 8.4 % Normal 0-10 [facility] Comment on above: Order Comment: DR ASHWINI SALDANA ORDERED CMP, LDH, CBCD PATTERN DESIGNER.JWITMER ORDERED LIPID PT HAD EATEN BREAKFAST Performed By: #### L 100.0100, L500.4050, L500.4100, L504.2610 #### [facility] [address] [place], [address] Neutrophils/100 WBC (Bld) 58.7 % Normal 47-70 [facility] Comment on above: Order Comment: DR ASHWINI SALDANA ORDERED CMP, LDH, CBCD PATTERN DESIGNER.JWITMER ORDERED LIPID PT HAD EATEN BREAKFAST Performed By: #### L 100.0100, L500.4050, L500.4100, L504.2610 #### [facility] [address] [place], [address] Nucleated RBC (Bld) [#/Vol] 0 10*3/uL Normal 0-5 [facility] Comment on above: Order Comment: DR ASHWINI SALDANA ORDERED CMP, LDH, CBCD PATTERN DESIGNER.JWITMER ORDERED LIPID PT HAD EATEN BREAKFAST Performed By: #### L 100.0100, L500.4050, L500.4100, L504.2610 #### [facility] [address] [place], [address] Platelet mean volume (Bld) [Entitic vol] 9.6 fL Normal 6.2-12.0 [facility] Comment on above: Order Comment: DR ASHWINI SALDANA ORDERED CMP, LDH, CBCD PATTERN DESIGNER.JWITMER ORDERED LIPID PT HAD EATEN BREAKFAST Performed By: #### L 100.0100, L500.4050, L500.4100, L504.2610 #### [facility] [address] [place], [address] Platelets (Bld) [#/Vol] 224 10*3/uL Normal 150-450 [facility] Comment on above: Order Comment: DR ASHWINI SALDANA ORDERED CMP, LDH, CBCD PATTERN DESIGNER.JWITMER ORDERED LIPID PT HAD EATEN BREAKFAST Performed By: #### L 100.0100, L500.4050, L500.4100, L504.2610 #### [facility] [address] [place], [address] RBC (Bld) [#/Vol] 3.81 10*6/uL Low 4.2-5.4 [facility] Comment on above: Order Comment: DR ASHWINI SALDANA ORDERED CMP, LDH, CBCD PATTERN DESIGNER.JWITMER ORDERED LIPID PT HAD EATEN BREAKFAST Performed By: #### L 100.0100, L500.4050, L500.4100, L504.2610 #### [facility] [address] [place], [address] RDW SD 45.8 fl High 35.1-43.9 [facility] Comment on above: Order Comment: DR ASHWINI SALDANA ORDERED CMP, LDH, CBCD PATTERN DESIGNER.JWITMER ORDERED LIPID PT HAD EATEN BREAKFAST Performed By: #### L 100.0100, L500.4050, L500.4100, L504.2610 #### [facility] [address] [place], [address] WBC (Bld) [#/Vol] 4.8 10*3/uL Normal 4.4-11.0 [facility] Comment on above: Order Comment: DR ASHWINI SALDANA ORDERED CMP, LDH, CBCD PATTERN DESIGNER.JWITMER ORDERED LIPID PT HAD EATEN BREAKFAST Performed By: #### L 100.0100, L500.4050, L500.4100, L504.2610 #### [facility] [address] [place], [address] Comprehensive Metabolic Prof ilon 11-19-2023 Albumin [Mass/Vol] 2.9 g/dL Low 3.2-5.0 [facility] Comment on above: Order Comment: DR ASHWINI SALDANA ORDERED CMP, LDH, CBCD PATTERN DESIGNER.JWITMER ORDERED LIPID PT HAD EATEN BREAKFAST 1 Performed By: #### L 100.0100, L500.4050, L500.4100, L504.2610 #### [facility] [address] [place], [address] Albumin/Globulin [Mass ratio] 0.8 {ratio} Low 0.9-2.4 [facility] Comment on above: Order Comment: DR ASHWINI SALDANA ORDERED CMP, LDH, CBCD PATTERN DESIGNER.JWITMER ORDERED LIPID PT HAD EATEN BREAKFAST 1 Performed By: #### L 100.0100, L500.4050, L500.4100, L504.2610 #### [facility] [address] [place], [address] ALK P 71 U/L Normal 45-117 [facility] Comment on above: Order Comment: DR ASHWINI SALDANA ORDERED CMP, LDH, CBCD PATTERN DESIGNER.JWITMER ORDERED LIPID PT HAD EATEN BREAKFAST 1 Performed By: #### L 100.0100, L500.4050, L500.4100, L504.2610 #### [facility] [address] [place], [address] ALT [Catalytic activity/Vol] 16 U/L Normal 13-56 [facility] Comment on above: Order Comment: DR ASHWINI SALDANA ORDERED CMP, LDH, CBCD PATTERN DESIGNER.JWITMER ORDERED LIPID PT HAD EATEN BREAKFAST 1 Performed By: #### L 100.0100, L500.4050, L500.4100, L504.2610 #### [facility] [address] [place], [address] AST [Catalytic activity/Vol] 16 U/L Normal 15-37 [facility] Comment on above: Order Comment: DR ASHWINI SALDANA ORDERED CMP, LDH, CBCD PATTERN DESIGNER.JWITMER ORDERED LIPID PT HAD EATEN BREAKFAST 1 Performed By: #### L 100.0100, L500.4050, L500.4100, L504.2610 #### [facility] [address] [place], [address] Bilirubin [Mass/Vol] 0.30 mg/dL Normal 0.20-1.00 [facility] Comment on above: Order Comment: DR ASHWINI SALDANA ORDERED CMP, LDH, CBCD PATTERN DESIGNER.JWITMER ORDERED LIPID PT HAD EATEN BREAKFAST 1 Result Comment: For patients on eltrombopag therapy, use of Dimension [place] TBIL is not recommended. Performed By: #### L 100.0100, L500.4050, L500.4100, L504.2610 #### [facility] [address] [place], [address] BUN/CRE 13.9 RATIO Normal 10-20 [facility] Comment on above: Order Comment: DR ASHWINI SALDANA ORDERED CMP, LDH, CBCD PATTERN DESIGNER.JWITMER ORDERED LIPID PT HAD EATEN BREAKFAST 1 Performed By: #### L 100.0100, L500.4050, L500.4100, L504.2610 #### [facility] [address] [place], [address] CA,Total 8.9 mg/dL Normal 8.5-10.1 [facility] Comment on above: Order Comment: DR ASHWINI SALDANA ORDERED CMP, LDH, CBCD PATTERN DESIGNER.JWITMER ORDERED LIPID PT HAD EATEN BREAKFAST 1 Performed By: #### L 100.0100, L500.4050, L500.4100, L504.2610 #### [facility] [address] [place], [address] Chloride [Moles/Vol] 110 mmol/L High 98-107 [facility] Comment on above: Order Comment: DR ASHWINI SALDANA ORDERED CMP, LDH, CBCD PATTERN DESIGNER.JWITMER ORDERED LIPID PT HAD EATEN BREAKFAST 1 Performed By: #### L 100.0100, L500.4050, L500.4100, L504.2610 #### [facility] [address] [place], [address] CO2 [Moles/Vol] 28.0 mmol/L Normal 21.0-32.0 [facility] Comment on above: Order Comment: DR ASHWINI SALDANA ORDERED CMP, LDH, CBCD PATTERN DESIGNER.SALO ORDERED LIPID PT HAD EATEN BREAKFAST 1 Performed By: #### L 100.0100, L500.4050, L500.4100, L504.2610 #### [facility] [address] [place], [address] Creatinine [Mass/Vol] 0.72 mg/dL Normal 0.55-1.02 [facility] Comment on above: Order Comment: DR ASHWINI SALDANA ORDERED CMP, LDH, CBCD PATTERN DESIGNER.SALO ORDERED LIPID PT HAD EATEN BREAKFAST 1 Result Comment: The validity of the calculated GFR GFRAA in patients over 70 years has not been determined. Clinical correlation is essential. Performed By: #### L 100.0100, L500.4050, L500.4100, L504.2610 #### [facility] [address] [place], [address] ECRCL 62.43 ml/min Normal [facility] Comment on above: Order Comment: DR ASHWINI SALDANA ORDERED CMP, LDH, CBCD PATTERN DESIGNER.SALO ORDERED LIPID PT HAD EATEN BREAKFAST 1 Performed By: #### L 100.0100, L500.4050, L500.4100, L504.2610 #### [facility] [address] [place], [address] EST GFR - AA 105 mL/min Normal >60 [facility] Comment on above: Order Comment: DR ASHWINI SALDANA ORDERED CMP, LDH, CBCD PATTERN DESIGNER.BRINDAITMER ORDERED LIPID PT HAD EATEN BREAKFAST 1 Result Comment: Afri can [place] GFR Calc Performed By: #### L 100.0100, L500.4050, L500.4100, L504.2610 #### [facility] [address] [place], [address] GAP 5 Normal 5-15 [facility] Comment on above: Order Comment: DR ASHWINI SALDANA ORDERED CMP, LDH, CBCD PATTERN DESIGNER.JWITMER ORDERED LIPID PT HAD EATEN BREAKFAST 1 Performed By: #### L 100.0100, L500.4050, L500.4100, L504.2610 #### [facility] [address] [place], [address] GFR/1.73 sq M.predicted among non-blacks MDRD (S/P/Bld) [Vol rate/Area] 87 mL/min/{1.73_m2} Normal >60 [facility] Comment on above: Order Comment: DR ASHWINI SALDANA ORDERED CMP, LDH, CBCD PATTERN DESIGNER.JWITMER ORDERED LIPID PT HAD EATEN BREAKFAST 1 Result Comment: Non- GFR Calc Performed By: #### L 100.0100, L500.4050, L500.4100, L504.2610 #### [facility] [address] [place], [address] Globulin (S) [Mass/Vol] 3.6 g/dL Normal 2.2-4.2 [facility] Comment on above: Order Comment: DR ASHWINI SALDANA ORDERED CMP, LDH, CBCD PATTERN DESIGNER.JWITMER ORDERED LIPID PT HAD EATEN BREAKFAST 1 Performed By: #### L 100.0100, L500.4050, L500.4100, L504.2610 #### [facility] [address] [place], [address] Glucose [Mass/Vol] 91 mg/dL Normal 74-106 [facility] Comment on above: Order Comment: DR ASHWINI SALDANA ORDERED CMP, LDH, CBCD PATTERN DESIGNER.JWITMER ORDERED LIPID PT HAD EATEN BREAKFAST 1 Performed By: #### L 100.0100, L500.4050, L500.4100, L504.2610 #### [facility] [address] [place], [address] Potassium [Moles/Vol] 4.0 mmol/L Normal 3.5-5.1 [facility] Comment on above: Order Comment: DR ASHWINI SALDANA ORDERED CMP, LDH, CBCD PATTERN DESIGNER.JWITMER ORDERED LIPID PT HAD EATEN BREAKFAST 1 Performed By: #### L 100.0100, L500.4050, L500.4100, L504.2610 #### [facility] [address] [place], [address] Sodium [Moles/Vol] 143 mmol/L Normal 136-145 [facility] Comment on above: Order Comment: DR ASHWINI SALDANA ORDERED CMP, LDH, CBCD PATTERN DESIGNER.JWITMER ORDERED LIPID PT HAD EATEN BREAKFAST 1 Performed By: #### L 100.0100, L500.4050, L500.4100, L504.2610 #### [facility] [address] [place], [address] T PROT 6.5 g/dL Normal 6.4-8.2 [facility] Comment on above: Order Comment: DR ASHWINI SALDANA ORDERED CMP, LDH, CBCD PATTERN DESIGNER.JWITMER ORDERED LIPID PT HAD EATEN BREAKFAST 1 Performed By: #### L 100.0100, L500.4050, L500.4100, L504.2610 #### [facility] [address] [place], [address] Urea nitrogen [Mass/Vol] 10 mg/dL Normal 7-18 [facility] Comment on above: Order Comment: DR ASHWINI SALDANA ORDERED CMP, LDH, CBCD PATTERN DESIGNER.JWITMER ORDERED LIPID PT HAD EATEN BREAKFAST 1 Performed By: #### L 100.0100, L500.4050, L500.4100, L504.2610 #### [facility] [address] [place], [address] LDHon 11-19-2023 LDH 206 U/L Normal 84-246 [facility] Comment on above: Order Comment: DR ASHWINI SALDANA ORDERED CMP, LDH, CBCDNP.JWITMER ORDERED LIPIDPT HAD EATEN BREAKFAST1 Performed By: #### L 503.6550, L503.6030, L504.2610, L100.0100, L500.4050 #### [facility] [address] [place], [address] Lipid Profileon 11-19-2023 Cholesterol [Mass/Vol] 204 mg/dL High 200 [facility] [place] Comment on above: Order Comment: DR ASHWINI SALDANA ORDERED CMP, LDH, CBCDNP.JWITMER ORDERED LIPIDPT HAD EATEN BREAKFAST1 Result Comment: <200 mg/dL Desirable 200-240 mg/dL Borderline >240 mg/dL High Risk Performed By: #### L 503.6550, L503.6030, L504.2610, L100.0100, L500.4050 #### [facility] [address] [place], [address] Cholesterol in HDL [Mass/Vol] 83 mg/dL Normal [facility] Comment on above: Order Comment: DR ASHWINI SALDANA ORDERED CMP, LDH, CBCDNP.JWITMER ORDERED LIPIDPT HAD EATEN BREAKFAST1 Result Comment: The drugs N-Acetylcysteine and Metamizole may falsely depress this assay. Reference Range HDL <40 mg/dL Low HDL Cholesterol HDL >or= 60 mg/dL High HDL Cholesterol Performed By: #### L 503.6550, L503.6030, L504.2610, L100.0100, L500.4050 #### [facility] [address] [place], [address] Cholesterol in LDL [Mass/Vol] 100 mg/dL Normal 0-130 [facility] Comment on above: Order Comment: DR ASHWINI SALDANA ORDERED CMP, LDH, CBCDNP.JWITMER ORDERED LIPIDPT HAD EATEN BREAKFAST1 Performed By: #### L 503.6550, L503.6030, L504.2610, L100.0100, L500.4050 #### [facility] [address] [place], [address] Cholesterol in VLDL [Mass/Vol] 21 mg/dL Normal 5-40 [facility] Comment on above: Order Comment: DR ASHWINI SALDANA ORDERED CMP, LDH, CBCDNP.JWITMER ORDERED LIPIDPT HAD EATEN BREAKFAST1 Performed By: #### L 503.6550, L503.6030, L504.2610, L100.0100, L500.4050 #### [facility] [address] [place], [address] Triglyceride [Mass/Vol] 107 mg/dL Normal [facility] Comment on above: Order Comment: DR ASHWINI SALDANA ORDERED CMP, LDH, CBCDNP.JWITMORGAN ORDERED LIPIDPT HAD EATEN BREAKFAST1 Result Comment: The drugs N-Acetylcysteine and Metamizole may falsely depress this assay. Serum Triglycerides Reference Interval Normal <150 mg/dL Borderline high 150 - 199 mg/dL High 200 - 499 mg/dL Very High > or = 500 mg/dL Performed By: #### L 503.6550, L503.6030, L504.2610, L100.0100, L500.4050 #### [facility] [address] [place], [place], [address] Oncology Visit Reporton 10-31 Oncology Visit Report [facility] [address] [place] [address] OFFICE VISIT Date of Service: 11/19/23 1340 MR#: [id number] Acct: [id number] Name: MICHAEL CASTREJON Rep #: [id number] : 1960 From: Chace Thakkar MD Age/Sex: 62/F [place] [facility] [place]: Signed HPI Subjective Date of Service 11/19/23 Chief Complaint Follow up- breast cancer History of Present Illness 62y.o.woman was diagnosed with Left breast cancer on 09/07/2015. FNA showed invasive Ductal Carcinoma, ER/AK positive, Her2 negative. She has Left MRM and axillary dissection on 09/26/2015, tumor size 34mm, LN3/4 positive, Stage IIIA(pT2 pN2a M0). She received adjuvant chemotherapy Dose Dense AC and Taxol form 10/22/2015-01/28/2016 . Received adjuvant RT form 02/12/2016-03/31/2016 . Dexa scan on 03/27/2016 showed Osteoporosis of Right hip. Declined Prolia. She began adjuvant Tamoxifen on 04/17/2016. Had BSO and YOCASTA on 09/13/2020. Remains on Tamoxifen. Comes for follow up. [facility] Medical History Wears glasses Cancer Alcohol use Low iron Back pain Injury of head and neck Shortness of breath on exertion Non-smoker Leg cramps med port removal colonoscopy Surgical History H/O hysterectomy with oophorectomy History of hysteroscopy History of mastectomy Family History Mother Breast cancer Diabetes Social History Smoking Status: Never smoker second hand exposure: No substance use type: does not use efrain/taoist: None seatbelt use: always do you feel safe at home: Yes Intake Vital Signs 05/06/23 11:37 11/19/23 13:41 11/19/23 13:46 Height 5 ft 3 in 5 ft 3 in 5 ft 3 in Weight: 59.194 kg 56.472 kg BMI 23.1 22.0 BP 100/68 102/70 Blood Pressure Location Rt brachial Rt brachial Position Sitting Sitting Respiration 18 18 Pulse 81 55 L Pulse Source Monitor Monitor Temp 98.2 F 98.4 F Temperature Source Temporal Artery Temporal Artery Pulse Oximetry (%) 99 100 Oxygen Delivery Method room air room air Intake Is patient in pain?: No Allergies No Known Allergies Allergy (Verified 11/19/23 13:46) Medications ???Medication ???Instructions ???Recorded ???Confirmed ???Type multivitamin 1 tab PO DAILY 07/24/20 11/19/23 History tamoxifen 20 mg tablet 20 mg PO DAILY 90 days #90 tabs 07/13/23 11/19/23 Rx Central Venous Access Central Venous Access: No Exam Physical Exam Const alert, oriented x3, no apparent distress and average body habitus General Appearance: cooperative HEENT normocephalic Eyes conjunctivae normal and no scleral icterus Neck no lymphadenopathy and supple Lymph Lymphatic: no lymphadenopathy noted Chest inspection of chest normal Chest Narrative: L mastectomy scar. Resp normal respiratory effort and clear to auscultation bilaterally Cardio regular rate, regular rhythm, S1 normal heart sound, S2 normal heart sound and no murmurs GI normal to inspection, nondistended, normoactive bowel sounds no CVA tenderness Back/Spine no CVA tenderness and thoracic and lumbar spine normal to inspection Extremity normal to inspection, no joint enlargement and no clubbing, cyanosis or edema Skin no rashes or lesions noted Psych mental status grossly normal Coding Level of Care Code Off vis,est,level 3 Exam Problem Focused Diagnoses History of left breast cancer Z85.3 Other osteoporosis without current pathological fracture M81.8 Osteoporosis type: other Presence of current pathological fracture: without current pathological fracture Anemia, unspecified type D64.9 Anemia type: unspecified type Assessment and Plan Assessment and Plan (1) History of left breast cancer: Status: Chronic Comment: Labs reviewed, within normal limits. No evidence of disease clinically, on adjuvant Tamoxifen. Mammogram on 11/17/2023 reviewed, normal. Plan: To continue Tamoxifen. Stool for occult blood. (2) Osteoporosis: Status: Chronic Qualifiers: Osteoporosis type: other Presence of current pathological fracture: without current pathological fracture Qualified Code(s): M81.8 - Other osteoporosis without current pathological fracture Comment: Bone density on 11/17/2023 shows worsening, still wants observation. Plan: To continue observation. (3) Anemia: Status: Acute Qualifiers: Anemia type: unspecified type Qualified Code(s): D64.9 - Anemia, unspecified Plan: To check stool for occult blood. Plan Details Follow Up: 6 Months 11/19/23 1423 Date Chace Thakkar MD Cosigner Signature: Da (more content not included)... Normal [facility] Absolute lymphocyte countOrd ered By: Chace Thakkar on 10-29-2022 Lymphocytes Auto (Unsp spec) [#/Vol] 1.31 10*3/uL 0.83-4.51 [facility] Basophil percentageOrdered B y: Chace Thakkar on 10-29-2022 Basophils/100 WBC (Bld) 1.0 % 0-1 [facility] Bilirubin [Mass/Vol] 0.50 mg/dL 0.20-1.00 [facility] Comment on above: For patients on eltr ombopag therapy, use of Dimension [place] TBIL is not recommended. Chloride [Moles/Vol] 108 mmol/L 98-107 [facility] Eosinophils/100 WBC (Bld) 2.2 % 0-5 [facility] Glucose [Mass/Vol] 82 mg/dL 74-106 [facility] LDH [Catalytic activity/Vol] 200 U/L 84-246 [facility] Neutrophils (Bld) [#/Vol] 2.2 10*3/uL 2.0-7.7 [facility] Neutrophils/100 WBC (Bld) 54.0 % 47-70 [facility] Potassium [Moles/Vol] 4.0 mmol/L 3.5-5.1 [facility] Protein [Mass/Vol] 6.6 g/dL 6.4-8.2 [facility] Sodium [Moles/Vol] 141 mmol/L 136-145 [facility] WBC (Bld) [#/Vol] 4.1 10*3/uL 4.4-11.0 [facility] Blood erythrocytes count (nu mber/volume)Ordered By: Chace Thakkar on 10-29-2022 RBC (Bld) [#/Vol] 4.24 10*6/uL 4.2-5.4 [facility] Blood hemoglobin measurement (mass/volume)Ordered By: Chace Thakkar on 10-29-2022 Hemoglobin (Bld) [Mass/Vol] 12.9 g/dL 12.0-15.0 [facility] Blood lymphocytes/100 leukoc ytesOrdered By: Chace Thakkar on 10-29-2022 Lymphocytes/100 WBC (Bld) 31.7 % 19-41 [facility] Blood monocytes/100 leukocyt esOrdered By: Chace Thakkar on 10-29-2022 Monocytes/100 WBC (Bld) 10.9 % 0-10 [facility] Blood platelet mean volumeOr dered By: Chace Thakkar on 10-29-2022 Platelet mean volume (Bld) [Entitic vol] 9.7 fL 6.2-12.0 [facility] Determination of erythrocyte mean corpuscular volume (MCV)Ordered By: Chace Thakkar on 10-29-2022 MCV (RBC) [Entitic vol] 96.0 fL 81-99 [facility] Hematocrit Auto (Bld) [Volum e fraction]Ordered By: Chace Thakkar on 10-29-2022 Hematocrit (Bld) [Volume fraction] 40.7 % 37-47 [facility] Laboratory - Chemistry and C hemistry - challengeOrdered By: Chace Thakkar on 10-29-2022 ALP [Catalytic activity/Vol] 72 U/L 45-117 [facility] ALT [Catalytic activity/Vol] 19 U/L 13-56 [facility] CO2 [Moles/Vol] 29.0 mmol/L 21.0-32.0 [facility] Globulin (S) [Mass/Vol] 3.3 g/dL 2.2-4.2 [facility] Urea nitrogen/Creatinine [Mass ratio] 12.1 mg/mg 10-20 [facility] Laboratory - Hematology and Cell countsOrdered By: Chace Thakkar on 10-29-2022 Erythrocyte distribution width (RBC) [Entitic vol] 44.4 fL 35.1-43.9 [facility] Erythrocyte distribution width (RBC) [Ratio] 12.6 % 11.6-14.6 [facility] Immature granulocytes/100 WBC (Bld) 0.200 % 0.0-0.9 [facility] Comment on above: IG% - Immature Granu locytes (promyelocytes, myelocytes and metamyelocytes) > 1% indicates that a LEFT SHIFT is Present. MCH (RBC) [Entitic mass] 30.4 pg 27.0-32.0 [facility] Nucleated RBC/100 WBC (Bld) [Ratio] 0 % 0-5 [facility] MCHC Auto (RBC) [Mass/Vol]Or dered By: Chace Thakkar on 10-29-2022 MCHC (RBC) [Mass/Vol] 31.7 g/dL 32-36 [facility] No Panel InformationOrdered By: Chace Thakkar on 10-29-2022 Estimated Creatinine Clearance Calc 61.54 ml/min [facility] Estimated GFR (MDRD) Amer 101 mL/min >60 [facility] Comment on above: GFR Calc Estimated GFR (MDRD) Non-Af Amer 84 mL/min >60 [facility] Comment on above: Non- GFR Calc Platelets bldOrdered By: Matthias Thakkar on 10-29-2022 Platelets (Bld) [#/Vol] 205 10*3/uL 150-450 [facility] Serum or plasma albumin char urement (mass/volume)Ordered By: Chace Thakkar on 10-29-2022 Albumin [Mass/Vol] 3.3 g/dL 3.2-5.0 [facility] Serum or plasma albumin/glob ulin mass ratioOrdered By: Chace Thakkar on 10-29-2022 Albumin/Globulin [Mass ratio] 1.0 {ratio} 0.9-2.4 [facility] Serum or plasma calcium char urement (mass/volume)Ordered By: Chace Thakkar on 10-29-2022 Calcium [Mass/Vol] 8.6 mg/dL 8.5-10.1 [facility] Serum or plasma creatinine m easurement (mass/volume)Ordered By: Chace Thakkar on 10-29-2022 Creatinine [Mass/Vol] 0.74 mg/dL 0.55-1.02 [facility] Comment on above: The validity of the calculated GFR & GFRAA in patients over 70 years has not been determined. Clinical correlation is essential. Serum or plasma urea nitroge n measurement (mass/volume)Ordered By: Chace Thakkar on 10-29-2022 Urea nitrogen [Mass/Vol] 9 mg/dL 7-18 [facility] Thin prep Papanicolaou smear with manual screeningOrdered By: Chace Thakkar on 10-29-2022 Thin prep Papanicolaou smear with manual screening 16 U/L 15-37 [facility] Thin prep Papanicolaou smear with manual screening 4 5-15 [facility] Absolute lymphocyte counton 10-30-2021 Lymphocytes Auto (Unsp spec) [#/Vol] 1.12 10*3/uL 0.83-4.51 [facility] Work Phone: Basophil percentageon 2021 Basophils/100 WBC (Bld) 0.6 % 0-1 [facility] Work Phone: Bilirubin [Mass/Vol] 0.60 mg/dL 0.20-1.00 [facility] Work Phone: Comment on above: For patients on eltr ombopag therapy, use of Dimension [place] TBIL is not recommended. Chloride [Moles/Vol] 109 mmol/L 98-107 [facility] Work Phone: Eosinophils/100 WBC (Bld) 2.7 % 0-5 [facility] Work Phone: Glucose [Mass/Vol] 75 mg/dL 74-106 [facility] Work Phone: Neutrophils (Bld) [#/Vol] 3.4 10*3/uL 2.0-7.7 [facility] Work Phone: Neutrophils/100 WBC (Bld) 65.0 % 47-70 [facility] Work Phone: Potassium [Moles/Vol] 3.8 mmol/L 3.5-5.1 [facility] Work Phone: Protein [Mass/Vol] 6.5 g/dL 6.4-8.2 [facility] Work Phone: Sodium [Moles/Vol] 140 mmol/L 136-145 [facility] Work Phone: WBC (Bld) [#/Vol] 5.2 10*3/uL 4.4-11.0 [facility] Work Phone: Blood erythrocytes count (nu mber/volume)on 10-30-2021 RBC (Bld) [#/Vol] 4.19 10*6/uL 4.2-5.4 [facility] Work Phone: Blood hemoglobin measurement (mass/volume)on 10-30-2021 Hemoglobin (Bld) [Mass/Vol] 12.9 g/dL 12.0-15.0 [facility] Work Phone: Blood lymphocytes/100 leukoc yteson 10-30-2021 Lymphocytes/100 WBC (Bld) 21.6 % 19-41 [facility] Work Phone: Blood monocytes/100 leukocyt eson 10-30-2021 Monocytes/100 WBC (Bld) 9.7 % 0-10 [facility] Work Phone: Blood platelet mean volumeon 10-30-2021 Platelet mean volume (Bld) [Entitic vol] 9.3 fL 6.2-12.0 [facility] Work Phone: Determination of erythrocyte mean corpuscular volume (MCV)on 10-30-2021 MCV (RBC) [Entitic vol] 95.7 fL 81-99 [facility] Work Phone: Hematocrit Auto (Bld) [Volum e fraction]on 10-30-2021 Hematocrit (Bld) [Volume fraction] 40.1 % 37-47 [facility] Work Phone: Laboratory - Chemistry and C hemistry - challengeon 10-30-2021 ALP [Catalytic activity/Vol] 66 U/L 45-117 [facility] Work Phone: ALT [Catalytic activity/Vol] 21 U/L 13-56 [facility] Work Phone: CO2 [Moles/Vol] 28.0 mmol/L 21.0-32.0 [facility] Work Phone: Globulin (S) [Mass/Vol] 3.3 g/dL 2.2-4.2 [facility] Work Phone: Urea nitrogen/Creatinine [Mass ratio] 14.2 mg/mg 10-20 [facility] Work Phone: Laboratory - Hematology and Cell countson 10-30-2021 Erythrocyte distribution width (RBC) [Entitic vol] 45.3 fL 35.1-43.9 [facility] Work Phone: Erythrocyte distribution width (RBC) [Ratio] 12.8 % 11.6-14.6 [facility] Work Phone: Immature granulocytes/100 WBC (Bld) 0.400 % 0.0-0.9 [facility] Work Phone: Comment on above: IG% - Immature Granu locytes (promyelocytes, myelocytes and metamyelocytes) > 1% indicates that a LEFT SHIFT is Present. MCH (RBC) [Entitic mass] 30.8 pg 27.0-32.0 [facility] Work Phone: Nucleated RBC/100 WBC (Bld) [Ratio] 0 % 0-5 [facility] Work Phone: MCHC Auto (RBC) [Mass/Vol]on 10-30-2021 MCHC (RBC) [Mass/Vol] 32.2 g/dL 32-36 [facility] Work Phone: No Panel Informationon 10-30 Estimated Creatinine Clearance Calc 59.15 ml/min [facility] Work Phone: Estimated GFR (MDRD) Amer 97 mL/min >60 [facility] Work Phone: Comment on above: GFR Calc Estimated GFR (MDRD) Non-Af Amer 80 mL/min >60 [facility] Work Phone: Comment on above: Non- GFR Calc Platelets bldon 10-30-2021 Platelets (Bld) [#/Vol] 191 10*3/uL 150-450 [facility] Work Phone: Serum or plasma albumin char urement (mass/volume)on 10-30-2021 Albumin [Mass/Vol] 3.2 g/dL 3.2-5.0 [facility] Work Phone: Serum or plasma albumin/glob ulin mass ratioon 10-30-2021 Albumin/Globulin [Mass ratio] 1.0 {ratio} 0.9-2.4 [facility] Work Phone: Serum or plasma calcium char urement (mass/volume)on 10-30-2021 Calcium [Mass/Vol] 8.4 mg/dL 8.5-10.1 [facility] Work Phone: Serum or plasma creatinine m easurement (mass/volume)on 10-30-2021 Creatinine [Mass/Vol] 0.78 mg/dL 0.55-1.02 [facility] Work Phone: Comment on above: The validity of the calculated GFR & GFRAA in patients over 70 years has not been determined. Clinical correlation is essential. Serum or plasma urea nitroge n measurement (mass/volume)on 10-30-2021 Urea nitrogen [Mass/Vol] 11 mg/dL 7-18 [facility] Work Phone: Thin prep Papanicolaou smear with manual screeningon 10-30-2021 Thin prep Papanicolaou smear with manual screening 16 U/L 15-37 [facility] Work Phone: Thin prep Papanicolaou smear with manual screening 3 5-15 [facility] Work Phone: Thin prep Papanicolaou smear with manual screening 196 U/L 84-246 [facility] Work Phone: MA MAMMOGRAM SCREENING RIGHT W/TOMOon 10-19-2020 MA MAMMOGRAM SCREENING RIGHT W/KEMAL ORIGINAL FROM: [address] [address] PROCEDURE FOR: MICHAEL CASTREJON [address] [place] [address] Home: PID#: [id number] Exam#: [id number] : 1960 Age: 59 TO: COTY HUGHES MD [facility] [address] [place] [address] Fax: NO FAX EXAMINATION: SCREENING DIGITAL RIGHT MAMMOGRAM WITH TOMOSYNTHESIS, 10/19/2020 TECHNIQUE: Screening mammography of the right breast was performed with tomosynthesis. 2D standard and 3D tomosynthesis combination imaging performed through the right breast in the MLO and CC projection. Computer aided detection was utilized in the interpretation of this exam. COMPARISON: Mammogram October 14, 2019, October 08, 2018, January 26, 2018 HISTORY: Breast cancer screening. FINDINGS: BREAST DENSITY: Scattered fibroglandular tissue There are postsurgical changes. No significant masses, calcifications, or other significant findings are seen in either breast. There has been no significant interval change. IMPRESSION: No mammographic evidence of malignancy. A 1 year screening mammogram is recommended. BIRADS: MAMMOGRAM BI-RADS: 2: Benign finding RECALL: 1 year screening RECALL TYPE: mammo LETTER SENT: Normal BI-RADS 1 and 2 Interpreted by: Janell Dyson Preliminary Report By: Janell Dyson Electronically signed By Janell Dyson Dictated Date: 10/26/2020 7:45:38 AM Prelim Date: 10/26/2020 7:47:06 AM Sign Date: 10/26/2020 7:47:06 AM Ordering Provider: COTY HUGHES copy to: RICHA POPE MD, ph: [phone], fax: NO FAX copy to: ANGEL RAMACHANDRAN MD, ph: [phone], fax: [phone] [employer] Accountant: XAVI MURRAY RT (R) (M) (CT) letter sent: Normal BI-RADS 1 and 2 Mammogram BI-RADS: 2 Benign Normal [facility] (ID) Erythrocyte distribution wid th standard deviationon 04-15-2018 Erythrocyte distribution width (RBC) [Entitic vol] 48.9 fL 35.1-43.9 [facility] Laboratory - Hematology and Cell countson 04-15-2018 Erythrocyte distribution width (RBC) [Ratio] 13.7 % 11.6-14.6 [facility] Total cell counton 9 Cells counted [employer] (Bld/Tiss) [#] Not Reportable [facility] MA MAMMOGRAM DIAGNOSTIC RIGH T W/TOMOon 09-04-2016 MA MAMMOGRAM DIAGNOSTIC RIGHT W/KEMAL ORIGINALFROM:[address] [address]abvu: [phone] PROCEDURE FOR:MICHAEL CASTREJON[address] [place], [place] [address]Gcre: [phone]#: [id number]#: [id number]#: [id number]: 9Age: 55 TO:COTY [facility] [id number] [place] [place] [address] #[id number] RIGHT DIGITAL DIAGNOSTIC MAMMOGRAM 3D/2D WITH CAD WITH MEDIOLATERAL OBLIQUE CRANIOCAUDAL: 09/04/2016CLINICAL: PREVIOUS MASTECTOMY FOR BREAST CA. Comparison is made to exams dated: 08/24/2015 mammogram and 04/07/2014 mammogram - [facility]. There are scattered fibroglandular elements in the right breast. Current study was also evaluated with a Computer Aided Detection (CAD) system. No significant masses, calcifications, or other findings are seen in the breast. There has been no significant interval change. IMPRESSION: NEGATIVEThere is no mammographic evidence of malignancy. A 1 year screening mammogram is recommended. CHRISTINA IBARRA MD ab/penrad:09/05/2016 10:55:39 copy to: RICHA POPE MD, ph: [phone], fax: [phone] [employer] Accountant: JONES BARNETT RT(R)(M)(CT) [facility] Normal BI-RADS 1&2 Mammogram BI-RADS: 1 Negative Normal [facility] Vital Signs Date Time Vital Sign Value Performing Clinician Faci wuy 11-06-2021 10:15-0400 Body height 160.[address] Charli Ba Work Phone: [facility] Work Phone: 10-30-2021 10:55-0400 Body mass index (BMI) [Ratio] 22.4 kg/m2 Dr. Charli Ba Work Phone: [facility] Work Phone: 10-30-2021 10:55-0400 Body temperature 98 [degF] Dr. Charli Ba Work Phone: [facility] Work Phone: 10-30-2021 10:55-0400 Body weight 57.[address] Charli Ba Work Phone: [facility] Work Phone: 10-30-2021 10:55-0400 Diastolic blood pressure 71 mm[Hg] Dr. Charli Ba Work Phone: [facility] Work Phone: 10-30-2021 10:55-0400 Heart rate 65 /min Dr. Charli Ba Work Phone: [facility] Work Phone: 10-30-2021 10:55-0400 Respiratory rate 16 /min Dr. Charli Ba Work Phone: [facility] Work Phone: 10-30-2021 10:55-0400 SaO2% (BldA) [Mass fraction] 98 % Dr. Charli Ba Work Phone: [facility] Work Phone: 10-30-2021 10:55-0400 Systolic blood pressure 104 mm[Hg] Dr. Charli Ba Work Phone: [facility] Work Phone: 06-25-2021 15:23-0400 Body height 160.02 cm [facility] Work Phone: 04-12-2020 13:29-0500 Body temperature 97.7 [degF] Dr. Charli Ba Work Phone: [facility] 04-12-2020 13:29-0500 Body weight 58.[address] Charli Ba Work Phone: [facility] 04-12-2020 13:29-0500 Diastolic blood pressure 65 mm[Hg] Dr. Charli Ba Work Phone: [facility] 04-12-2020 13:29-0500 Heart rate 77 /min Dr. Charli Ba Work Phone: [facility] 04-12-2020 13:29-0500 Respiratory rate 14 /min Dr. Charli Ba Work Phone: [facility] 04-12-2020 13:29-0500 SaO2% (BldA) [Mass fraction] 99 % Dr. Charli Ba Work Phone: [facility] 04-12-2020 13:29-0500 Systolic blood pressure 96 mm[Hg] Dr. Charli Ba Work Phone: [facility] 04-14-2019 12:58-0500 Body mass index (BMI) [Ratio] 23.2 kg/m2 Dr. Charli Ba Work Phone: [facility] Encounters Encounter Date Encounter Type Care Provider Facility Start: 11-17-2024 ambulatory Nini Jackson PATTERN DESIGNER Facil ity:[facility] Start: 05-04-2024 End: 05-04-2024 ambulatory Nini Jackson NP Facility:[facility] Start: 11-19-2023 End: 11-19-2023 ambulatory Nini Jackson PATTERN DESIGNER Facility:[facility] Start: 10-29-2022 Registered Recurring [facility] Start: 10-29-2022 End: 10-29-2022 ambulatory [facility] Work Phone: Start: 10-29-2022 End: 10-29-2022 Patient encounter procedure [facility] Work Phone: Start: 11-06-2021 End: 11-06-[address] Charli Ba Work Phone: [facility] Work Phone: Start: 11-06-2021 End: 11-06-[address] Charli Ba Work Phone: [facility] Start: 10-30-[address] Bossman Ba Work Phone: [facility] [facility] Start: 10-30-2021 End: 10-30-[address] Charli Ba Work Phone: [facility] Start: 10-24-2021 End: 10-24-2021 ambulatory [facility] Work Phone: Start: 10-24-2021 End: 10-24-2021 Patient encounter procedure [facility] Start: 09-04-2016 End: 09-05-2016 Ambulatory COTY HUGHES Facility:[facility] [place] Procedures Date Procedure Procedure Detail Performing Clinician Start: 10-29-2022 Screening mammography of right breast Start: 11-06-2021 Dual energy X-ray absorptiometry Dr. Charli Ba Work Phone: Start: 10-24-2021 Screening mammography of right breast Colonoscopy colonoscopy H/O: hysterectomy H/O hysterecto my with oophorectomy Plan of Treatment Date Care Activity Detail Author Start: 04-15-2018 [facility] Start: 03-19-2017 [facility] DXA Bone [Mass/Area] Bone density [facility] Work Phone: DXA Bone [Mass/Area] Bone density [facility] MG Breast - right Screening [facility] Work Phone: MG Breast - right Screening [facility] Immunizations Immunization Date Immunization Notes Care Provider Fa [facility] 12-01-2019 influenza, seasonal, injectable [facility] Payers Date Payer Category Payer Private Health Insurance [id number] 2016 Medicare [id number] 2016 Self-pay [id number] 2013 Private Health Insurance [id number] Unknown ANTHEM [id number] Unknown ANTHEM [id number] Unknown BC OUT OF STATE [id number] Unknown [id number] Unknown [id number] Unknown [id number] Social History Date Type Detail Facility Start: 10-18-2020 Tobacco smoking status NHIS Unknown if ever smoked [facility] Start: 10-29-2015 None [facility] Start: 10-29-2015 Spouse/ Signif icant Other [facility] Start: 07-24-2020 Non-smoker [facility] Start: 1960 Sex Assigned At Female [facility] Evaluation note Note Date & Type Note Facility Evaluation note No assessment information availa ble [facility] Work Phone: Evaluation note Note Date & Type Note Facility Evaluation note Diagnosis Onset Date History of left breast cancer chronic Osteoporosis chronic History of left breast cancer chronic Osteoporosis [facility] Work Phone: Evaluation note Note Date & Type Note Facility Evaluation note Diagnosis Onset Date History of left breast cancer chronic Osteoporosis [facility] Work Phone: Hospital Discharge instructions Note Date & Type Note Facility Hospital Discharge instructions Ambulatory OrdersReturn to Office Location: None SelectedReturn to Office Location: None SelectedUNILAT RT SCRN W/CAD [HPBI] Time Frame: 6 Months, Location: None [facility] Work Phone: Summary Purpose Family History No Family History Records Found Relationship Condition Age at Onset Recorded Date/T luciano mother Malignant neoplasm of breast Unknown Diabetes mellitus Unknown Advance Directives No Advanced Directives Records Found Advance Directive Response Recorded Date/ Time Advance Directives No December 1:57pm Living Will No September 13, 2020 4:58pm Power of Organizational Consultant No September 13 4:58pm Chief Complaint and Reason for Visit Chief Complaint SCREENING Chief Complaint SCREENING 6MO LABS REVIEW MAMMO ONC/HEM Menopausal and female climacteric states Reason for Visit History of left [facility] cancer Osteoporosis History of left breast cancer Osteoporosis Chief Complaint SCREENING ONC/HEM Reason for Visit History of left [facility] cancer Osteoporosis Additional Source Comments INFORMATION SOURCE (unrecogn ized section and content) DATE CREATED AUTHOR 08/26/2017 [facility] DATE CREATED AUTHOR AUTHOR'S ORGANIZ ATION 10/27/2020 [facility] ([place]) DATE CREATED AUTHOR AUTHOR'S ORGANIZ ATION 11/17/2024 [facility] Goals (unrecognized section and content) Goals may be documented in a n alternate sectionGoals may be documented in an alternate sectionGoals may be documented in an alternate section Care Teams (unrecognized sec tion and content) Team Status: Active Member Role Status Dates Dr. Richa Pope MD Family Provider Active Nini Jackson PATTERN DESIGNER, PATTERN DESIGNER-C Primary Care Provider Active Team Status: Active Member Role Status Dates Dr. Richa Pope MD Primary Care Provider, Family Provider Active Dr. Chace Thakkar MD Attending Provider Active Dr. Coty Hughes MD Referring Provider Active Team Status: Inactive Member Role Status Dates Dr. Chace Thakkar MD Attending Provider, Referring Pro vider Active Nini Jackson PATTERN DESIGNER, PATTERN DESIGNER-C Primary Care Provider Active FOR RECORDS PERTAINING TO PATIENTS WHO ARE OR HAVE BEEN ENROLLED IN A CHEMICAL DEPENDENCY/SUBSTANCEABUSE PROGRAM, SOME INFORMATION MAY BE OMITTED. This clinical summary was aggregated from multiple sources. Caution should be exercised in using it in the provision of clinical care. This summary normalizes information from multiple sources, and as a consequence, information in this document may materially change the coding, format and clinical context of patient data. In addition, data may be omitted in some cases. CLINICAL DECISIONS SHOULD BE BASED ON THE PRIMARY CLINICAL RECORDS. [employer] provides no warranty or guarantee of the accuracy or completeness of information in this document.
== END | disposition home or self-care (01) ==
LOC: OPBI 10:51
PROVIDERS: PCP Nurse Practitioner Primary Care; Referring Provider Nurse Practitioner Family; Visit Provider Nurse Practitioner Family
DX: Z12.31 Encounter for screening mammogram for malignant neoplasm of breast (principal)
CPT/HCPCS: 77063; 77067